=== PATIENT | female | born 1935 | race African-American/Black ===

== ENCOUNTER 2017-12-07 08:31 | Inpatient (IN) ==
[2017-12-07] MEDS ORDERED: methylPREDNISolone SOD SUC 125 MG/2 ML VIAL IV STA (09:23)
[2017-12-07] MEDS ORDERED: LEVOFLOXACIN INJ 750 MG in PREMIX 1 EACH IV STA (09:23)
[2017-12-07] MEDS ORDERED: ALBUTEROL/IPRATROPIUM 3 ML NEB RESP TX STA (09:23)
[2017-12-07] MEDS ORDERED: LEVOFLOXACIN INJ 0 ML IV ONE (10:19)
[2017-12-07] MEDS ORDERED: methylPREDNISolone SOD SUC 125 MG/2 ML VIAL ONE (10:20)
[2017-12-07 10:39] LABS: Basophils % 0.2 % (0.0-0.8); Eosinophils # 0.5 10*3/uL (0.0-0.87); Eosinophils % 7.8 % (0.00-10.9); Hemoglobin 11.7 GM/DL (12.0-16.0); Immature Granulocytes % 0.3 %; Immature Granulocytes Absolute 0.02 #; Lymphocytes # 1.3 10*3/uL (1.4-4.0); Lymphocytes % 23.1 % (21.3-54.2); Mean Corpuscular HGB Conc 32.5 GM/DL (32-36); Mean Corpuscular Hemoglobin 31 PG (27-34); Mean Corpuscular Volume 93.8 FL (87-102); Mean Platelet Volume 9.4 FL (9.6-12.0); Monocytes # 0.7 10*3/uL (0.11-0.8); Monocytes % 11.4 % (1.7-12.7); Neutrophils # 3.3 10*3/uL (1.4-7.4); Neutrophils % 57.2 % (38.7-73.9); Platelet Count 203 T/CUMM (130-400); Red Blood Count 3.84 MC/CUMM (3.8-5.5); Red Cell Distribution Width 12.9 % (9.3-17.3); White Blood Count 5.8 T/CUMM (4-12)
[2017-12-07 11:00] LABS: Alanine Aminotransferase 21 U/L (13-56); Albumin 3.7 G/DL (3.4-5.0); Alkaline Phosphatase 81 U/L (45-117); Aspartate Amino Transferase 16 U/L (0-37); Bilirubin,Total < 0.39 MG/DL (0.2-1.0); Blood Urea Nitrogen 12 MG/DL (7-18); Calcium 8.8 MG/DL (8.5-10.1); Glucose 117 MG/DL (74-106); Osmolality,Calculated 286.8 MOS/KG (273-304); Potassium 3.7 MMOL/L (3.5-5.1); Sodium 144 MMOL/L (136-145); Total Protein 6.3 G/DL (6.4-8.3); Troponin I Only 0.029 NG/ML (0.00-0.045)
[2017-12-07] MEDS ORDERED: ACETAMINOPHEN 325 MG TABLET PO ONE (11:32)
[2017-12-07] MEDS ORDERED: ACETAMINOPHEN 325 MG TABLET ONE (11:33)
[2017-12-07] MEDS ORDERED: ONDANSETRON 4 MG/2 ML VIAL IV PRN (11:37)
[2017-12-07] MEDS ORDERED: methylPREDNISolone SOD SUC 125 MG/2 ML VIAL IV SCH (12:00)
[2017-12-07] MEDS: ALBUTEROL/IPRATROPIUM 3 ML NEB RESP TX SCH ×2 (12:00→20:40)
[2017-12-07] MEDS: HYOSCYAMINE 0.125 MG TABLET SL SCH (15:34)
[2017-12-07] MEDS: METOCLOPRAMIDE 5 MG TABLET PO SCH ×2 (15:35→21:59)
[2017-12-07] MEDS: POLYVINYL ALCOHOL 1.4% OPH SOLN 15 ML BOTTLE BOTH EYES SCH ×2 (15:35→22:00)
[2017-12-07] MEDS: CARBOXYMETHYLCELLULOSE 1% OPH SOLN BOTH EYES SCH ×2 (15:36→21:59)
[2017-12-07] MEDS: SODIUM CHLORIDE 0.65% NASAL SPRAY 45 ML BOTTLE BOTH NARES SCH ×3 (15:37→22:00)
[2017-12-07] MEDS: MONTELUKAST 10 MG TABLET PO SCH (16:39)
[2017-12-07] MEDS: CARVEDILOL 12.5 MG TABLET PO SCH (16:39)
[2017-12-07] MEDS: THEOPHYLLINE ER 300 MG TABLET PO SCH (16:39)
[2017-12-07] MEDS ORDERED: ALBUTEROL/IPRATROPIUM 3 ML NEB RESP TX PRN (17:57)
[2017-12-07] MEDS: methylPREDNISolone SOD SUC 40 MG/1 ML VIAL IV SCH (18:37)
[2017-12-07] MEDS: BUDESONIDE 0.25 MG/2 ML NEB RESP TX SCH (20:40)
[2017-12-07] MEDS ORDERED: ACLIDINIUM INH SCH (21:00)
[2017-12-07] MEDS: DOCUSATE SODIUM 100 MG CAPSULE PO SCH (21:59)
[2017-12-07] MEDS: FLUTICASONE/SALMETEROL 250-50 DISKUS 14 DOSE INH SCH (21:59)
[2017-12-07] MEDS: ENOXAPARIN 40 MG/0.4 ML SYRINGE SUBCUT SCH (21:59)
[2017-12-07] MEDS: CITALOPRAM 20 MG TABLET PO SCH (21:59)
[2017-12-07] MEDS: ACETAMINOPHEN 325 MG TABLET PO PRN (22:14)
[2017-12-07] MEDS: SODIUM CHLORIDE 0.45% 1,000 ML IV SCH (23:55)
[2017-12-08] MEDS: ALBUTEROL/IPRATROPIUM 3 ML NEB RESP TX SCH ×4 (01:10→19:27)
[2017-12-08 03:58] LABS: Hematocrit 32.6 VOL% (35.7-47.0); Hemoglobin 10.9 GM/DL (12.0-16.0); Immature Granulocytes % 0.2 %; Immature Granulocytes Absolute 0.01 #; Lymphocytes # 0.8 10*3/uL (1.4-4.0); Lymphocytes % 17.2 % (21.3-54.2); Mean Corpuscular HGB Conc 33.4 GM/DL (32-36); Mean Corpuscular Hemoglobin 31 PG (27-34); Mean Corpuscular Volume 92.6 FL (87-102); Mean Platelet Volume 10.4 FL (9.6-12.0); Monocytes # 0.3 10*3/uL (0.11-0.8); Monocytes % 7.5 % (1.7-12.7); Neutrophils # 3.4 10*3/uL (1.4-7.4); Neutrophils % 75.1 % (38.7-73.9); Platelet Count 178 T/CUMM (130-400); Red Blood Count 3.52 MC/CUMM (3.8-5.5); Red Cell Distribution Width 12.4 % (9.3-17.3); White Blood Count 4.5 T/CUMM (4-12)
[2017-12-08] MEDS: methylPREDNISolone SOD SUC 40 MG/1 ML VIAL IV SCH ×3 (04:27→17:41)
[2017-12-08 04:31] LABS: Calcium 8.4 MG/DL (8.5-10.1); Potassium 3.7 MMOL/L (3.5-5.1)
[2017-12-08] MEDS: BUDESONIDE 0.25 MG/2 ML NEB RESP TX SCH ×2 (06:48→19:27)
[2017-12-08] MEDS: CARVEDILOL 12.5 MG TABLET PO SCH ×2 (08:38→16:09)
[2017-12-08] MEDS: FUROSEMIDE 40 MG TABLET PO SCH (08:39)
[2017-12-08] MEDS: HYOSCYAMINE 0.125 MG TABLET SL SCH ×2 (08:39→16:09)
[2017-12-08] MEDS: TOLTERODINE LA 4 MG CAPSULE PO SCH (08:39)
[2017-12-08] MEDS: PANTOPRAZOLE 40 MG TABLET PO SCH (08:39)
[2017-12-08] MEDS: THEOPHYLLINE ER 300 MG TABLET PO SCH ×2 (08:39→16:09)
[2017-12-08] MEDS: METOCLOPRAMIDE 5 MG TABLET PO SCH ×4 (08:39→20:32)
[2017-12-08] MEDS: ATORVASTATIN 40 MG TABLET PO SCH (08:40)
[2017-12-08] MEDS: CETIRIZINE 10 MG TABLET PO SCH (08:40)
[2017-12-08] MEDS: MULTIVITAMIN (CENTRUM) TABLET PO SCH (08:40)
[2017-12-08] MEDS: ASPIRIN 325 MG TABLET PO SCH (08:40)
[2017-12-08] MEDS: DOCUSATE SODIUM 100 MG CAPSULE PO SCH ×2 (08:40→20:32)
[2017-12-08] MEDS: SODIUM CHLORIDE 0.65% NASAL SPRAY 45 ML BOTTLE BOTH NARES SCH ×4 (08:41→20:37)
[2017-12-08] MEDS: FLUTICASONE/SALMETEROL 250-50 DISKUS 14 DOSE INH SCH ×2 (08:41→20:37)
[2017-12-08] MEDS: POLYVINYL ALCOHOL 1.4% OPH SOLN 15 ML BOTTLE BOTH EYES SCH ×3 (08:41→20:37)
[2017-12-08] MEDS: CARBOXYMETHYLCELLULOSE 1% OPH SOLN BOTH EYES SCH ×3 (08:41→20:40)
[2017-12-08] MEDS ORDERED: NON-FORMULARY MEDICATION (Dexlansoprazole [Dexilant] 60 MG) PO SCH (09:00)
[2017-12-08] MEDS: SODIUM CHLORIDE 0.45% 1,000 ML IV SCH (12:41)
[2017-12-08] MEDS: MONTELUKAST 10 MG TABLET PO SCH (16:09)
[2017-12-08] MEDS ORDERED: MAGNESIUM SULF RIDER 2 GM in PREMIX 1 EACH IV ONE (19:30)
[2017-12-08] MEDS: CITALOPRAM 20 MG TABLET PO SCH (20:32)
[2017-12-08] MEDS: ENOXAPARIN 40 MG/0.4 ML SYRINGE SUBCUT SCH (20:33)
[2017-12-09] MEDS: ALBUTEROL/IPRATROPIUM 3 ML NEB RESP TX SCH ×4 (00:50→19:04)
[2017-12-09] MEDS: methylPREDNISolone SOD SUC 40 MG/1 ML VIAL IV SCH ×3 (02:30→17:49)
[2017-12-09] MEDS: SODIUM CHLORIDE 0.45% 1,000 ML IV SCH ×2 (02:30→16:14)
[2017-12-09 05:32] LABS: Basophils % 0.1 % (0.0-0.8); Hematocrit 35.3 VOL% (35.7-47.0); Hemoglobin 11.1 GM/DL (12.0-16.0); Immature Granulocytes % 0.4 %; Immature Granulocytes Absolute 0.04 #; Lymphocytes # 0.8 10*3/uL (1.4-4.0); Lymphocytes % 7.6 % (21.3-54.2); Mean Corpuscular HGB Conc 31.4 GM/DL (32-36); Mean Corpuscular Hemoglobin 29 PG (27-34); Mean Corpuscular Volume 93.6 FL (87-102); Monocytes # 0.5 10*3/uL (0.11-0.8); Monocytes % 4.8 % (1.7-12.7); Neutrophils # 9.3 10*3/uL (1.4-7.4); Neutrophils % 87.1 % (38.7-73.9); Platelet Count 202 T/CUMM (130-400); Red Blood Count 3.77 MC/CUMM (3.8-5.5); Red Cell Distribution Width 12.5 % (9.3-17.3); White Blood Count 10.7 T/CUMM (4-12)
[2017-12-09 05:56] LABS: Calcium 8.9 MG/DL (8.5-10.1); Osmolality,Calculated 287.1 MOS/KG (273-304); Potassium 3.8 MMOL/L (3.5-5.1)
[2017-12-09] MEDS: BUDESONIDE 0.25 MG/2 ML NEB RESP TX SCH ×2 (06:56→19:04)
[2017-12-09] MEDS: HYOSCYAMINE 0.125 MG TABLET SL SCH ×2 (08:31→16:49)
[2017-12-09] MEDS: CARVEDILOL 12.5 MG TABLET PO SCH ×2 (08:31→16:49)
[2017-12-09] MEDS: CARBOXYMETHYLCELLULOSE 1% OPH SOLN BOTH EYES SCH ×3 (08:31→20:24)
[2017-12-09] MEDS: MULTIVITAMIN (CENTRUM) TABLET PO SCH (08:31)
[2017-12-09] MEDS: THEOPHYLLINE ER 300 MG TABLET PO SCH ×2 (08:31→16:50)
[2017-12-09] MEDS: CETIRIZINE 10 MG TABLET PO SCH (08:31)
[2017-12-09] MEDS: METOCLOPRAMIDE 5 MG TABLET PO SCH ×4 (08:32→20:21)
[2017-12-09] MEDS: POLYVINYL ALCOHOL 1.4% OPH SOLN 15 ML BOTTLE BOTH EYES SCH ×3 (08:32→20:23)
[2017-12-09] MEDS: ASPIRIN 325 MG TABLET PO SCH (08:32)
[2017-12-09] MEDS: ATORVASTATIN 40 MG TABLET PO SCH (08:32)
[2017-12-09] MEDS: LEVOFLOXACIN INJ 750 MG in PREMIX 1 EACH IV SCH (08:32)
[2017-12-09] MEDS: FUROSEMIDE 40 MG TABLET PO SCH (08:32)
[2017-12-09] MEDS: DOCUSATE SODIUM 100 MG CAPSULE PO SCH ×2 (08:32→20:21)
[2017-12-09] MEDS: TOLTERODINE LA 4 MG CAPSULE PO SCH (08:32)
[2017-12-09] MEDS: SODIUM CHLORIDE 0.65% NASAL SPRAY 45 ML BOTTLE BOTH NARES SCH ×4 (08:32→20:23)
[2017-12-09] MEDS: PANTOPRAZOLE 40 MG TABLET PO SCH (08:32)
[2017-12-09] MEDS: FLUTICASONE/SALMETEROL 250-50 DISKUS 14 DOSE INH SCH ×2 (08:33→20:22)
[2017-12-09] MEDS: MONTELUKAST 10 MG TABLET PO SCH (16:50)
[2017-12-09] MEDS: ENOXAPARIN 40 MG/0.4 ML SYRINGE SUBCUT SCH (20:20)
[2017-12-09] MEDS: CITALOPRAM 20 MG TABLET PO SCH (20:21)
[2017-12-10] MEDS: ALBUTEROL/IPRATROPIUM 3 ML NEB RESP TX SCH ×4 (00:12→18:57)
[2017-12-10] MEDS: methylPREDNISolone SOD SUC 40 MG/1 ML VIAL IV SCH ×3 (02:13→16:06)
[2017-12-10 05:26] LABS: Hematocrit 33.1 VOL% (35.7-47.0); Hemoglobin 10.9 GM/DL (12.0-16.0); Immature Granulocytes % 0.5 %; Immature Granulocytes Absolute 0.04 #; Lymphocytes # 0.8 10*3/uL (1.4-4.0); Lymphocytes % 10.4 % (21.3-54.2); Mean Corpuscular HGB Conc 32.9 GM/DL (32-36); Mean Corpuscular Hemoglobin 31 PG (27-34); Mean Corpuscular Volume 92.7 FL (87-102); Mean Platelet Volume 10.2 FL (9.6-12.0); Monocytes # 0.4 10*3/uL (0.11-0.8); Monocytes % 5.3 % (1.7-12.7); Neutrophils # 6.5 10*3/uL (1.4-7.4); Neutrophils % 83.8 % (38.7-73.9); Platelet Count 188 T/CUMM (130-400); Red Blood Count 3.57 MC/CUMM (3.8-5.5); Red Cell Distribution Width 12.6 % (9.3-17.3); White Blood Count 7.7 T/CUMM (4-12)
[2017-12-10] MEDS: SODIUM CHLORIDE 0.45% 1,000 ML IV SCH ×2 (05:39→19:00)
[2017-12-10 05:56] LABS: Calcium 8.4 MG/DL (8.5-10.1); Potassium 3.9 MMOL/L (3.5-5.1)
[2017-12-10] MEDS: BUDESONIDE 0.25 MG/2 ML NEB RESP TX SCH ×2 (06:52→18:57)
[2017-12-10] MEDS: CARVEDILOL 12.5 MG TABLET PO SCH ×2 (09:21→16:05)
[2017-12-10] MEDS: TOLTERODINE LA 4 MG CAPSULE PO SCH (09:21)
[2017-12-10] MEDS: ASPIRIN 325 MG TABLET PO SCH (09:21)
[2017-12-10] MEDS: METOCLOPRAMIDE 5 MG TABLET PO SCH ×4 (09:21→22:23)
[2017-12-10] MEDS: MULTIVITAMIN (CENTRUM) TABLET PO SCH (09:21)
[2017-12-10] MEDS: HYOSCYAMINE 0.125 MG TABLET SL SCH ×2 (09:21→16:05)
[2017-12-10] MEDS: THEOPHYLLINE ER 300 MG TABLET PO SCH ×2 (09:21→16:05)
[2017-12-10] MEDS: DOCUSATE SODIUM 100 MG CAPSULE PO SCH ×2 (09:21→22:24)
[2017-12-10] MEDS: FUROSEMIDE 40 MG TABLET PO SCH (09:22)
[2017-12-10] MEDS: ATORVASTATIN 40 MG TABLET PO SCH (09:22)
[2017-12-10] MEDS: PANTOPRAZOLE 40 MG TABLET PO SCH (09:22)
[2017-12-10] MEDS: CETIRIZINE 10 MG TABLET PO SCH (09:22)
[2017-12-10] MEDS: FLUTICASONE/SALMETEROL 250-50 DISKUS 14 DOSE INH SCH ×2 (09:26→22:26)
[2017-12-10] MEDS: CARBOXYMETHYLCELLULOSE 1% OPH SOLN BOTH EYES SCH ×3 (09:26→22:24)
[2017-12-10] MEDS: POLYVINYL ALCOHOL 1.4% OPH SOLN 15 ML BOTTLE BOTH EYES SCH ×3 (09:26→22:27)
[2017-12-10] MEDS: SODIUM CHLORIDE 0.65% NASAL SPRAY 45 ML BOTTLE BOTH NARES SCH ×4 (09:27→22:27)
[2017-12-10] MEDS: MONTELUKAST 10 MG TABLET PO SCH (16:05)
[2017-12-10 20:43] LABS: Apearance,Urine CLEAR (Clear); Bilirubin,Urine Negative (Negative); Blood, Urine Negative (Negative); Glucose,Urine (UA) Negative (Negative); Ketones,Urine Negative (Negative); Mucus,Urine Occasional /LPF (Occasional); Nitrite,Urine Negative (Negative); Protein,Urine Negative; Squamous Epithelial Cell,Urine Occasional /HPF (0-10); Urine Color Straw (Yellow); Urine Specific Gravity 1.008 (1.001-1.035); Urine Urobilinogen < 2.0 EU/DL (0.2-1.0); WBC,Urine <1 /HPF (0-6)
[2017-12-10] MEDS: CITALOPRAM 20 MG TABLET PO SCH (22:23)
[2017-12-10] MEDS: ENOXAPARIN 40 MG/0.4 ML SYRINGE SUBCUT SCH (22:25)
[2017-12-11] MEDS: ALBUTEROL/IPRATROPIUM 3 ML NEB RESP TX SCH ×4 (00:12→19:15)
[2017-12-11] MEDS: methylPREDNISolone SOD SUC 40 MG/1 ML VIAL IV SCH ×3 (01:39→16:04)
[2017-12-11] MEDS: BUDESONIDE 0.25 MG/2 ML NEB RESP TX SCH ×2 (06:57→19:16)
[2017-12-11 07:09] LABS: Basophils % 0.1 % (0.0-0.8); Hematocrit 35.5 VOL% (35.7-47.0); Hemoglobin 11.5 GM/DL (12.0-16.0); Immature Granulocytes % 0.7 %; Immature Granulocytes Absolute 0.05 #; Lymphocytes # 0.7 10*3/uL (1.4-4.0); Lymphocytes % 8.5 % (21.3-54.2); Mean Corpuscular HGB Conc 32.4 GM/DL (32-36); Mean Corpuscular Hemoglobin 31 PG (27-34); Mean Corpuscular Volume 94.2 FL (87-102); Mean Platelet Volume 10.8 FL (9.6-12.0); Monocytes # 0.4 10*3/uL (0.11-0.8); Monocytes % 4.7 % (1.7-12.7); Neutrophils # 6.6 10*3/uL (1.4-7.4); Platelet Count 160 T/CUMM (130-400); Red Blood Count 3.77 MC/CUMM (3.8-5.5); Red Cell Distribution Width 12.6 % (9.3-17.3); White Blood Count 7.7 T/CUMM (4-12)
[2017-12-11] MEDS ORDERED: MIDAZOLAM 2 MG/2 ML VIAL ONE (07:27)
[2017-12-11] MEDS ORDERED: MEPERIDINE 50 MG/1 ML VIAL IM ONE (07:30)
[2017-12-11] MEDS ORDERED: PROMETHAZINE 25 MG/1 ML VIAL IM ONE (07:30)
[2017-12-11] MEDS ORDERED: GLYCOPYRROLATE 0.4 MG/2 ML VIAL IM ONE (07:30)
[2017-12-11 07:33] LABS: Risk Ratio 1.61; VLDL CHOLESTEROL 12.8 MG/DL
[2017-12-11] MEDS: HYOSCYAMINE 0.125 MG TABLET SL SCH ×2 (07:35→16:02)
[2017-12-11] MEDS: METOCLOPRAMIDE 5 MG TABLET PO SCH ×4 (07:35→22:00)
[2017-12-11] MEDS ORDERED: LIDOCAINE 1% 20 ML VIAL MISC INJ ONE (08:00)
[2017-12-11] MEDS ORDERED: LIDOCAINE 2% 20 ML VIAL RESP TX ONE (08:00)
[2017-12-11] MEDS ORDERED: LIDOCAINE 2% VISCOUS 100 ML BOTTLE SWISH/SPIT ONE (08:00)
[2017-12-11] MEDS ORDERED: MIDAZOLAM 2 MG/2 ML VIAL IV ONE (08:00)
[2017-12-11] MEDS: LEVOFLOXACIN INJ 750 MG in PREMIX 1 EACH IV SCH (10:56)
[2017-12-11] MEDS: POLYVINYL ALCOHOL 1.4% OPH SOLN 15 ML BOTTLE BOTH EYES SCH ×3 (11:00→21:59)
[2017-12-11] MEDS: CARBOXYMETHYLCELLULOSE 1% OPH SOLN BOTH EYES SCH ×3 (11:00→22:03)
[2017-12-11] MEDS: FLUTICASONE/SALMETEROL 250-50 DISKUS 14 DOSE INH SCH ×2 (11:03→22:03)
[2017-12-11] MEDS: CARVEDILOL 12.5 MG TABLET PO SCH ×2 (11:06→16:02)
[2017-12-11] MEDS: ASPIRIN 325 MG TABLET PO SCH (11:08)
[2017-12-11] MEDS: MULTIVITAMIN (CENTRUM) TABLET PO SCH (11:09)
[2017-12-11] MEDS: THEOPHYLLINE ER 300 MG TABLET PO SCH ×2 (11:09→16:02)
[2017-12-11] MEDS: ATORVASTATIN 40 MG TABLET PO SCH (11:11)
[2017-12-11] MEDS: CETIRIZINE 10 MG TABLET PO SCH (11:12)
[2017-12-11] MEDS: FUROSEMIDE 40 MG TABLET PO SCH (11:12)
[2017-12-11] MEDS: SODIUM CHLORIDE 0.65% NASAL SPRAY 45 ML BOTTLE BOTH NARES SCH ×4 (11:12→22:03)
[2017-12-11] MEDS: TOLTERODINE LA 4 MG CAPSULE PO SCH (11:12)
[2017-12-11] MEDS: PANTOPRAZOLE 40 MG TABLET PO SCH (11:12)
[2017-12-11] MEDS: DOCUSATE SODIUM 100 MG CAPSULE PO SCH ×2 (11:12→22:00)
[2017-12-11] MEDS: SODIUM CHLORIDE 0.45% 1,000 ML IV SCH (13:44)
[2017-12-11] MEDS: MONTELUKAST 10 MG TABLET PO SCH (16:03)
[2017-12-11] MEDS: CITALOPRAM 20 MG TABLET PO SCH (22:00)
[2017-12-11] MEDS: ENOXAPARIN 40 MG/0.4 ML SYRINGE SUBCUT SCH (22:04)
[2017-12-12] MEDS: ALBUTEROL/IPRATROPIUM 3 ML NEB RESP TX SCH ×6 (00:30→23:59)
[2017-12-12] MEDS: methylPREDNISolone SOD SUC 40 MG/1 ML VIAL IV SCH ×3 (01:03→16:43)
[2017-12-12] MEDS: SODIUM CHLORIDE 0.45% 1,000 ML IV SCH ×2 (02:46→17:21)
[2017-12-12 06:23] LABS: Hematocrit 34.6 VOL% (35.7-47.0); Hemoglobin 11.3 GM/DL (12.0-16.0); Immature Granulocytes Absolute 0.08 #; Lymphocytes # 0.7 10*3/uL (1.4-4.0); Mean Corpuscular HGB Conc 32.7 GM/DL (32-36); Mean Corpuscular Hemoglobin 30 PG (27-34); Mean Corpuscular Volume 92.3 FL (87-102); Mean Platelet Volume 10.2 FL (9.6-12.0); Monocytes # 0.4 10*3/uL (0.11-0.8); Monocytes % 4.7 % (1.7-12.7); Neutrophils # 6.6 10*3/uL (1.4-7.4); Neutrophils % 85.3 % (38.7-73.9); Platelet Count 192 T/CUMM (130-400); Red Blood Count 3.75 MC/CUMM (3.8-5.5); Red Cell Distribution Width 12.6 % (9.3-17.3); White Blood Count 7.8 T/CUMM (4-12)
[2017-12-12 06:37] LABS: Calcium 8.3 MG/DL (8.5-10.1); Potassium 3.9 MMOL/L (3.5-5.1)
[2017-12-12] MEDS: BUDESONIDE 0.25 MG/2 ML NEB RESP TX SCH ×2 (07:05→19:06)
[2017-12-12] MEDS: HYOSCYAMINE 0.125 MG TABLET SL SCH ×2 (08:40→16:43)
[2017-12-12] MEDS: ASPIRIN 325 MG TABLET PO SCH (08:40)
[2017-12-12] MEDS: ATORVASTATIN 40 MG TABLET PO SCH (08:40)
[2017-12-12] MEDS: DOCUSATE SODIUM 100 MG CAPSULE PO SCH ×2 (08:40→20:46)
[2017-12-12] MEDS: CARVEDILOL 12.5 MG TABLET PO SCH ×2 (08:40→16:43)
[2017-12-12] MEDS: PANTOPRAZOLE 40 MG TABLET PO SCH (08:40)
[2017-12-12] MEDS: CETIRIZINE 10 MG TABLET PO SCH (08:41)
[2017-12-12] MEDS: MULTIVITAMIN (CENTRUM) TABLET PO SCH (08:41)
[2017-12-12] MEDS: TOLTERODINE LA 4 MG CAPSULE PO SCH (08:41)
[2017-12-12] MEDS: THEOPHYLLINE ER 300 MG TABLET PO SCH ×2 (08:41→16:43)
[2017-12-12] MEDS: METOCLOPRAMIDE 5 MG TABLET PO SCH ×4 (08:41→20:45)
[2017-12-12] MEDS: FUROSEMIDE 40 MG TABLET PO SCH (08:41)
[2017-12-12] MEDS: FLUTICASONE/SALMETEROL 250-50 DISKUS 14 DOSE INH SCH ×2 (08:42→20:45)
[2017-12-12] MEDS: CARBOXYMETHYLCELLULOSE 1% OPH SOLN BOTH EYES SCH ×3 (08:43→20:47)
[2017-12-12] MEDS: POLYVINYL ALCOHOL 1.4% OPH SOLN 15 ML BOTTLE BOTH EYES SCH ×3 (08:44→20:47)
[2017-12-12] MEDS: SODIUM CHLORIDE 0.65% NASAL SPRAY 45 ML BOTTLE BOTH NARES SCH ×4 (08:44→20:47)
[2017-12-12] MEDS: DORNASE ALFA 2.5 MG/2.5 ML VIAL RESP TX SCH ×2 (10:51→19:06)
[2017-12-12] MEDS ORDERED: POTASSIUM IODIDE ORAL SOLN 1,000 MG/ML BOTTLE PO SCH (15:00)
[2017-12-12] MEDS: MONTELUKAST 10 MG TABLET PO SCH (16:43)
[2017-12-12] MEDS: CITALOPRAM 20 MG TABLET PO SCH (20:46)
[2017-12-12] MEDS: ENOXAPARIN 40 MG/0.4 ML SYRINGE SUBCUT SCH (20:46)
[2017-12-13] MEDS: methylPREDNISolone SOD SUC 40 MG/1 ML VIAL IV SCH ×3 (01:35→17:25)
[2017-12-13] MEDS: ALBUTEROL/IPRATROPIUM 3 ML NEB RESP TX SCH ×5 (03:20→19:10)
[2017-12-13] MEDS: SODIUM CHLORIDE 0.45% 1,000 ML IV SCH ×2 (05:48→20:05)
[2017-12-13 06:02] LABS: Basophils % 0.1 % (0.0-0.8); Immature Granulocytes % 1.2 %; Lymphocytes # 0.7 10*3/uL (1.4-4.0); Lymphocytes % 7.7 % (21.3-54.2); Red Cell Distribution Width 12.7 % (9.3-17.3)
[2017-12-13 06:24] LABS: Hematocrit 33.7 VOL% (35.7-47.0); Hemoglobin 11.3 GM/DL (12.0-16.0); Mean Corpuscular HGB Conc 33.5 GM/DL (32-36); Mean Corpuscular Hemoglobin 31 PG (27-34); Mean Corpuscular Volume 91.6 FL (87-102); Mean Platelet Volume 9.8 FL (9.6-12.0); Monocytes # 0.5 10*3/uL (0.11-0.8); Monocytes % 5.6 % (1.7-12.7); Neutrophils # 7.3 10*3/uL (1.4-7.4); Neutrophils % 85.4 % (38.7-73.9); Platelet Count 215 T/CUMM (130-400); Red Blood Count 3.68 MC/CUMM (3.8-5.5); White Blood Count 8.6 T/CUMM (4-12)
[2017-12-13 06:25] LABS: Potassium 3.8 MMOL/L (3.5-5.1)
[2017-12-13] MEDS: DORNASE ALFA 2.5 MG/2.5 ML VIAL RESP TX SCH ×2 (07:20→19:10)
[2017-12-13] MEDS: BUDESONIDE 0.25 MG/2 ML NEB RESP TX SCH ×2 (07:20→19:10)
[2017-12-13] MEDS: SODIUM CHLORIDE 0.65% NASAL SPRAY 45 ML BOTTLE BOTH NARES SCH ×4 (09:31→21:49)
[2017-12-13] MEDS: POLYVINYL ALCOHOL 1.4% OPH SOLN 15 ML BOTTLE BOTH EYES SCH ×3 (09:32→21:21)
[2017-12-13] MEDS: THEOPHYLLINE ER 300 MG TABLET PO SCH ×2 (09:32→17:25)
[2017-12-13] MEDS: CARBOXYMETHYLCELLULOSE 1% OPH SOLN BOTH EYES SCH ×3 (09:32→21:21)
[2017-12-13] MEDS: TOLTERODINE LA 4 MG CAPSULE PO SCH (09:32)
[2017-12-13] MEDS: MULTIVITAMIN (CENTRUM) TABLET PO SCH (09:32)
[2017-12-13] MEDS: HYOSCYAMINE 0.125 MG TABLET SL SCH ×2 (09:32→15:52)
[2017-12-13] MEDS: CETIRIZINE 10 MG TABLET PO SCH (09:33)
[2017-12-13] MEDS: PANTOPRAZOLE 40 MG TABLET PO SCH (09:33)
[2017-12-13] MEDS: ASPIRIN 325 MG TABLET PO SCH (09:33)
[2017-12-13] MEDS: CARVEDILOL 12.5 MG TABLET PO SCH ×2 (09:33→17:25)
[2017-12-13] MEDS: DOCUSATE SODIUM 100 MG CAPSULE PO SCH ×2 (09:33→21:21)
[2017-12-13] MEDS: FUROSEMIDE 40 MG TABLET PO SCH (09:33)
[2017-12-13] MEDS: LEVOFLOXACIN INJ 750 MG in PREMIX 1 EACH IV SCH (09:33)
[2017-12-13] MEDS: ATORVASTATIN 40 MG TABLET PO SCH (09:33)
[2017-12-13] MEDS: METOCLOPRAMIDE 5 MG TABLET PO SCH ×4 (09:33→21:21)
[2017-12-13] MEDS: FLUTICASONE/SALMETEROL 250-50 DISKUS 14 DOSE INH SCH ×2 (09:35→21:21)
[2017-12-13] MEDS: MONTELUKAST 10 MG TABLET PO SCH (17:25)
[2017-12-13] MEDS: CITALOPRAM 20 MG TABLET PO SCH (21:20)
[2017-12-13] MEDS: ENOXAPARIN 40 MG/0.4 ML SYRINGE SUBCUT SCH (21:20)
[2017-12-13] MEDS: ACETAMINOPHEN 325 MG TABLET PO PRN (21:20)
[2017-12-14] MEDS: methylPREDNISolone SOD SUC 40 MG/1 ML VIAL IV SCH ×3 (00:56→16:43)
[2017-12-14] MEDS: ALBUTEROL/IPRATROPIUM 3 ML NEB RESP TX SCH ×7 (03:13→22:37)
[2017-12-14 05:45] LABS: Basophils % 0.1 % (0.0-0.8); Hematocrit 33.3 VOL% (35.7-47.0); Hemoglobin 10.6 GM/DL (12.0-16.0); Immature Granulocytes Absolute 0.08 #; Lymphocytes # 0.5 10*3/uL (1.4-4.0); Lymphocytes % 6.5 % (21.3-54.2); Mean Corpuscular HGB Conc 31.8 GM/DL (32-36); Mean Corpuscular Hemoglobin 30 PG (27-34); Mean Corpuscular Volume 94.3 FL (87-102); Mean Platelet Volume 9.6 FL (9.6-12.0); Monocytes # 0.4 10*3/uL (0.11-0.8); Neutrophils # 7.3 10*3/uL (1.4-7.4); Neutrophils % 87.4 % (38.7-73.9); Platelet Count 182 T/CUMM (130-400); Red Blood Count 3.53 MC/CUMM (3.8-5.5); Red Cell Distribution Width 12.8 % (9.3-17.3); White Blood Count 8.3 T/CUMM (4-12)
[2017-12-14 06:16] LABS: Calcium 8.4 MG/DL (8.5-10.1); Free T4 (Free Thyroxine) 0.8 NG/DL (0.76-1.46); Osmolality,Calculated 292.1 MOS/KG (273-304); Potassium 3.9 MMOL/L (3.5-5.1)
[2017-12-14] MEDS: BUDESONIDE 0.25 MG/2 ML NEB RESP TX SCH ×2 (07:28→18:30)
[2017-12-14] MEDS: DORNASE ALFA 2.5 MG/2.5 ML VIAL RESP TX SCH ×2 (07:38→18:30)
[2017-12-14] MEDS: ASPIRIN 325 MG TABLET PO SCH (08:35)
[2017-12-14] MEDS: MULTIVITAMIN (CENTRUM) TABLET PO SCH (08:35)
[2017-12-14] MEDS: THEOPHYLLINE ER 300 MG TABLET PO SCH ×2 (08:35→16:54)
[2017-12-14] MEDS: CARBOXYMETHYLCELLULOSE 1% OPH SOLN BOTH EYES SCH ×3 (08:35→21:39)
[2017-12-14] MEDS: POLYVINYL ALCOHOL 1.4% OPH SOLN 15 ML BOTTLE BOTH EYES SCH ×3 (08:35→21:41)
[2017-12-14] MEDS: TOLTERODINE LA 4 MG CAPSULE PO SCH (08:35)
[2017-12-14] MEDS: CARVEDILOL 12.5 MG TABLET PO SCH ×2 (08:35→16:43)
[2017-12-14] MEDS: FLUTICASONE/SALMETEROL 250-50 DISKUS 14 DOSE INH SCH ×2 (08:35→21:42)
[2017-12-14] MEDS: PANTOPRAZOLE 40 MG TABLET PO SCH (08:36)
[2017-12-14] MEDS: FUROSEMIDE 40 MG TABLET PO SCH (08:36)
[2017-12-14] MEDS: METOCLOPRAMIDE 5 MG TABLET PO SCH ×4 (08:36→21:35)
[2017-12-14] MEDS: ATORVASTATIN 40 MG TABLET PO SCH (08:36)
[2017-12-14] MEDS: DOCUSATE SODIUM 100 MG CAPSULE PO SCH ×2 (08:36→21:36)
[2017-12-14] MEDS: HYOSCYAMINE 0.125 MG TABLET SL SCH ×2 (08:36→16:43)
[2017-12-14] MEDS: CETIRIZINE 10 MG TABLET PO SCH (08:36)
[2017-12-14] MEDS: SODIUM CHLORIDE 0.65% NASAL SPRAY 45 ML BOTTLE BOTH NARES SCH ×4 (08:40→21:40)
[2017-12-14] MEDS: SODIUM CHLORIDE 0.45% 1,000 ML IV SCH (10:10)
[2017-12-14] MEDS: ACETAMINOPHEN 325 MG TABLET PO PRN (14:44)
[2017-12-14] MEDS: MONTELUKAST 10 MG TABLET PO SCH (16:43)
[2017-12-14] MEDS: CITALOPRAM 20 MG TABLET PO SCH (21:36)
[2017-12-14] MEDS: ENOXAPARIN 40 MG/0.4 ML SYRINGE SUBCUT SCH (21:38)
[2017-12-15] MEDS: methylPREDNISolone SOD SUC 40 MG/1 ML VIAL IV SCH ×3 (01:14→17:09)
[2017-12-15] MEDS: ALBUTEROL/IPRATROPIUM 3 ML NEB RESP TX SCH ×2 (02:37→07:26)
[2017-12-15] MEDS: SODIUM CHLORIDE 0.45% 1,000 ML IV SCH ×3 (02:39→12:58)
[2017-12-15 06:00] LABS: Osmolality,Calculated 298.8 MOS/KG (273-304); Potassium 3.8 MMOL/L (3.5-5.1)
[2017-12-15] MEDS: DORNASE ALFA 2.5 MG/2.5 ML VIAL RESP TX SCH ×2 (07:26→19:07)
[2017-12-15] MEDS: BUDESONIDE 0.25 MG/2 ML NEB RESP TX SCH ×2 (07:26→19:07)
[2017-12-15] MEDS: HYOSCYAMINE 0.125 MG TABLET SL SCH ×2 (07:50→16:43)
[2017-12-15] MEDS: METOCLOPRAMIDE 5 MG TABLET PO SCH ×4 (07:50→22:03)
[2017-12-15] MEDS: THEOPHYLLINE ER 300 MG TABLET PO SCH ×2 (07:50→17:12)
[2017-12-15] MEDS: CARVEDILOL 12.5 MG TABLET PO SCH ×2 (07:50→16:44)
[2017-12-15] MEDS: POLYVINYL ALCOHOL 1.4% OPH SOLN 15 ML BOTTLE BOTH EYES SCH ×3 (09:23→22:05)
[2017-12-15] MEDS: FLUTICASONE/SALMETEROL 250-50 DISKUS 14 DOSE INH SCH ×2 (09:30→22:07)
[2017-12-15] MEDS: TOLTERODINE LA 4 MG CAPSULE PO SCH (09:34)
[2017-12-15] MEDS: SODIUM CHLORIDE 0.65% NASAL SPRAY 45 ML BOTTLE BOTH NARES SCH ×4 (09:35→22:05)
[2017-12-15] MEDS: DOCUSATE SODIUM 100 MG CAPSULE PO SCH ×2 (09:35→22:03)
[2017-12-15] MEDS: FUROSEMIDE 40 MG TABLET PO SCH (09:35)
[2017-12-15] MEDS: ATORVASTATIN 40 MG TABLET PO SCH (09:35)
[2017-12-15] MEDS: ASPIRIN 325 MG TABLET PO SCH (09:35)
[2017-12-15] MEDS: PANTOPRAZOLE 40 MG TABLET PO SCH (09:35)
[2017-12-15] MEDS: LEVOFLOXACIN INJ 750 MG in PREMIX 1 EACH IV SCH (09:35)
[2017-12-15] MEDS: CETIRIZINE 10 MG TABLET PO SCH (09:35)
[2017-12-15] MEDS: MULTIVITAMIN (CENTRUM) TABLET PO SCH (09:35)
[2017-12-15] MEDS: CARBOXYMETHYLCELLULOSE 1% OPH SOLN BOTH EYES SCH ×3 (09:36→22:06)
[2017-12-15] MEDS: MONTELUKAST 10 MG TABLET PO SCH (17:12)
[2017-12-15] MEDS: CITALOPRAM 20 MG TABLET PO SCH (22:03)
[2017-12-15] MEDS: ENOXAPARIN 40 MG/0.4 ML SYRINGE SUBCUT SCH (22:04)
[2017-12-16] MEDS: methylPREDNISolone SOD SUC 40 MG/1 ML VIAL IV SCH ×3 (01:18→16:57)
[2017-12-16] MEDS: SODIUM CHLORIDE 0.45% 1,000 ML IV SCH ×2 (03:20→15:42)
[2017-12-16 06:32] LABS: Calcium 8.2 MG/DL (8.5-10.1); Osmolality,Calculated 294.1 MOS/KG (273-304); Potassium 3.9 MMOL/L (3.5-5.1)
[2017-12-16] MEDS: METOCLOPRAMIDE 5 MG TABLET PO SCH ×4 (07:44→21:07)
[2017-12-16] MEDS: THEOPHYLLINE ER 300 MG TABLET PO SCH ×2 (07:44→16:57)
[2017-12-16] MEDS: CARVEDILOL 12.5 MG TABLET PO SCH ×2 (07:44→16:51)
[2017-12-16] MEDS: HYOSCYAMINE 0.125 MG TABLET SL SCH ×2 (07:44→16:51)
[2017-12-16] MEDS: BUDESONIDE 0.25 MG/2 ML NEB RESP TX SCH ×2 (08:42→19:12)
[2017-12-16] MEDS: DORNASE ALFA 2.5 MG/2.5 ML VIAL RESP TX SCH ×2 (08:47→19:12)
[2017-12-16] MEDS: FLUTICASONE/SALMETEROL 250-50 DISKUS 14 DOSE INH SCH ×2 (09:56→21:12)
[2017-12-16] MEDS: POLYVINYL ALCOHOL 1.4% OPH SOLN 15 ML BOTTLE BOTH EYES SCH ×3 (09:56→21:10)
[2017-12-16] MEDS: SODIUM CHLORIDE 0.65% NASAL SPRAY 45 ML BOTTLE BOTH NARES SCH ×4 (09:56→21:09)
[2017-12-16] MEDS: CARBOXYMETHYLCELLULOSE 1% OPH SOLN BOTH EYES SCH ×3 (09:56→21:11)
[2017-12-16] MEDS: ATORVASTATIN 40 MG TABLET PO SCH (09:57)
[2017-12-16] MEDS: ASPIRIN 325 MG TABLET PO SCH (09:57)
[2017-12-16] MEDS: TOLTERODINE LA 4 MG CAPSULE PO SCH (09:57)
[2017-12-16] MEDS: DOCUSATE SODIUM 100 MG CAPSULE PO SCH ×2 (09:57→21:07)
[2017-12-16] MEDS: CETIRIZINE 10 MG TABLET PO SCH (09:58)
[2017-12-16] MEDS: MULTIVITAMIN (CENTRUM) TABLET PO SCH (09:58)
[2017-12-16] MEDS: FUROSEMIDE 40 MG TABLET PO SCH (09:58)
[2017-12-16] MEDS: PANTOPRAZOLE 40 MG TABLET PO SCH (09:58)
[2017-12-16] MEDS: MONTELUKAST 10 MG TABLET PO SCH (16:57)
[2017-12-16] MEDS: CITALOPRAM 20 MG TABLET PO SCH (21:07)
[2017-12-16] MEDS: ENOXAPARIN 40 MG/0.4 ML SYRINGE SUBCUT SCH (21:08)
[2017-12-17] MEDS: methylPREDNISolone SOD SUC 40 MG/1 ML VIAL IV SCH ×2 (01:37→08:55)
[2017-12-17] MEDS: SODIUM CHLORIDE 0.45% 1,000 ML IV SCH (03:50)
[2017-12-17] MEDS: BUDESONIDE 0.25 MG/2 ML NEB RESP TX SCH (06:58)
[2017-12-17 07:03] LABS: Basophils % 0.1 % (0.0-0.8); Hematocrit 34.2 VOL% (35.7-47.0); Hemoglobin 11.6 GM/DL (12.0-16.0); Immature Granulocytes % 1.9 %; Immature Granulocytes Absolute 0.16 #; Lymphocytes # 0.6 10*3/uL (1.4-4.0); Lymphocytes % 6.9 % (21.3-54.2); Mean Corpuscular HGB Conc 33.9 GM/DL (32-36); Mean Corpuscular Hemoglobin 31 PG (27-34); Mean Corpuscular Volume 91.2 FL (87-102); Mean Platelet Volume 9.7 FL (9.6-12.0); Monocytes # 0.6 10*3/uL (0.11-0.8); Monocytes % 6.5 % (1.7-12.7); Neutrophils # 7.2 10*3/uL (1.4-7.4); Neutrophils % 84.6 % (38.7-73.9); Platelet Count 223 T/CUMM (130-400); Red Blood Count 3.75 MC/CUMM (3.8-5.5); White Blood Count 8.5 T/CUMM (4-12)
[2017-12-17] MEDS: DORNASE ALFA 2.5 MG/2.5 ML VIAL RESP TX SCH (07:05)
[2017-12-17 07:22] LABS: Calcium 8.1 MG/DL (8.5-10.1); Osmolality,Calculated 297.1 MOS/KG (273-304)
[2017-12-17 07:45] VITALS: BP 155/85
[2017-12-17] MEDS: LEVOFLOXACIN INJ 750 MG in PREMIX 1 EACH IV SCH (08:53)
[2017-12-17] MEDS: POLYVINYL ALCOHOL 1.4% OPH SOLN 15 ML BOTTLE BOTH EYES SCH (08:54)
[2017-12-17] MEDS: SODIUM CHLORIDE 0.65% NASAL SPRAY 45 ML BOTTLE BOTH NARES SCH (08:54)
[2017-12-17] MEDS: DOCUSATE SODIUM 100 MG CAPSULE PO SCH (08:55)
[2017-12-17] MEDS: ATORVASTATIN 40 MG TABLET PO SCH (08:55)
[2017-12-17] MEDS: ASPIRIN 325 MG TABLET PO SCH (08:55)
[2017-12-17] MEDS: HYOSCYAMINE 0.125 MG TABLET SL SCH (08:55)
[2017-12-17] MEDS: METOCLOPRAMIDE 5 MG TABLET PO SCH ×2 (08:55→10:55)
[2017-12-17] MEDS: MULTIVITAMIN (CENTRUM) TABLET PO SCH (08:55)
[2017-12-17] MEDS: FUROSEMIDE 40 MG TABLET PO SCH (08:56)
[2017-12-17] MEDS: PANTOPRAZOLE 40 MG TABLET PO SCH (08:56)
[2017-12-17] MEDS: CETIRIZINE 10 MG TABLET PO SCH (08:56)
[2017-12-17] MEDS: CARVEDILOL 12.5 MG TABLET PO SCH (08:56)
[2017-12-17] MEDS: FLUTICASONE/SALMETEROL 250-50 DISKUS 14 DOSE INH SCH (09:07)
[2017-12-17] MEDS: TOLTERODINE LA 4 MG CAPSULE PO SCH (09:40)
[2017-12-17] MEDS: THEOPHYLLINE ER 300 MG TABLET PO SCH (09:40)
[2017-12-17] MEDS: CARBOXYMETHYLCELLULOSE 1% OPH SOLN BOTH EYES SCH (09:40)
[2017-12-17] MEDS ORDERED: CEFUROXIME 500 MG TABLET PO SCH (21:00)
[2017-12-18] MEDS ORDERED: predniSONE 10 MG TABLET PO SCH (09:00)
== END 2017-12-17 12:28 | disposition home or self-care (01) | DRG 191 ==
LOC: EDUNIT# → EDBD → N.ED 08:31 → N.EDINP 11:37 → N.2E 13:20
PROVIDERS: ADMIT Family Medicine; ATTEND Family Medicine

== ENCOUNTER 2018-12-15 06:00 | Inpatient (IN) ==
[2018-12-15 06:25] LABS: Basophils % 0.2 % (0.0-0.8); Hematocrit 34.5 VOL% (35.7-47.0); Hemoglobin 11.3 GM/DL (12.0-16.0); Immature Granulocytes % 0.6 %; Immature Granulocytes Absolute 0.05 #; Lymphocytes # 1.7 10*3/uL (1.4-4.0); Lymphocytes % 19.3 % (21.3-54.2); Mean Corpuscular HGB Conc 32.8 GM/DL (32-36); Mean Corpuscular Volume 94.5 FL (87-102); Mean Platelet Volume 10.2 FL (9.6-12.0); Neutrophils % 70.9 % (38.7-73.9); Platelet Count 251 T/CUMM (130-400); Red Blood Count 3.65 MC/CUMM (3.8-5.5); Red Cell Distribution Width 12.9 % (9.3-17.3); White Blood Count 8.7 T/CUMM (4-12)
[2018-12-15 06:35] LABS: PT Patient Result 10.7 SECS; Partial Thromboplastin Time 23.2 SECS (0-40)
[2018-12-15] MEDS ORDERED: cefTRIAXone 1,000 MG in SODIUM CHLORIDE 0.9% 100 ML IV STA (06:48)
[2018-12-15] MEDS ORDERED: ALBUTEROL/IPRATROPIUM 3 ML NEB RESP TX STA (06:48)
[2018-12-15] MEDS ORDERED: methylPREDNISolone SOD SUC 125 MG/2 ML VIAL IV STA (06:48)
[2018-12-15 07:29] LABS: Alanine Aminotransferase 24 U/L (13-56); Albumin 3.7 G/DL (3.4-5.0); Alkaline Phosphatase 70 U/L (45-117); Aspartate Amino Transferase 17 U/L (0-37); Bilirubin,Total < 0.39 MG/DL (0.2-1.0); Blood Urea Nitrogen 15 MG/DL (7-18); Calcium 8.5 MG/DL (8.5-10.1); Glucose 120 MG/DL (74-106); Osmolality,Calculated 284.1 MOS/KG (273-304); Total Protein 6.6 G/DL (6.4-8.3)
[2018-12-15] MEDS ORDERED: cefTRIAXone 1,000 MG VIAL ONE (07:36)
[2018-12-15] MEDS ORDERED: ONDANSETRON 4 MG/2 ML VIAL IV PRN (08:28)
[2018-12-15] MEDS ORDERED: ACETAMINOPHEN 325 MG TABLET PO PRN (08:28)
[2018-12-15] MEDS ORDERED: PANTOPRAZOLE 40 MG TABLET PO SCH (09:00)
[2018-12-15] MEDS: DOCUSATE SODIUM 100 MG CAPSULE PO SCH ×2 (10:11→20:39)
[2018-12-15] MEDS ORDERED: clonazePAM 0.5 MG TABLET PO PRN (11:39)
[2018-12-15] MEDS ORDERED: NABUMETONE 750 MG TABLET PO PRN (11:39)
[2018-12-15] MEDS ORDERED: ALBUTEROL 2.5 MG/3 ML NEB RESP TX PRN (12:22)
[2018-12-15] MEDS ORDERED: ALBUTEROL/IPRATROPIUM 3 ML NEB RESP TX SCH (13:00)
[2018-12-15] MEDS: cefTRIAXone 1,000 MG in SYRINGE 1 EACH IV SCH ×2 (13:02→20:42)
[2018-12-15] MEDS: methylPREDNISolone SOD SUC 125 MG/2 ML VIAL IV SCH ×2 (13:03→17:00)
[2018-12-15] MEDS: ENOXAPARIN 40 MG/0.4 ML SYRINGE SUBCUT SCH (13:55)
[2018-12-15] MEDS: ALBUTEROL/IPRATROPIUM 3 ML NEB RESP TX SCH ×3 (14:09→23:26)
[2018-12-15] MEDS ORDERED: CARVEDILOL 6.25 MG TABLET PO SCH (15:09)
[2018-12-15] MEDS: METOCLOPRAMIDE 5 MG TABLET PO SCH ×2 (17:00→20:39)
[2018-12-15] MEDS: THEOPHYLLINE ER 300 MG TABLET PO SCH (17:01)
[2018-12-15] MEDS: CARBOXYMETHYLCELLULOSE 1% OPH SOLN BOTH EYES SCH ×2 (17:02→22:27)
[2018-12-15] MEDS: MONTELUKAST 10 MG TABLET PO SCH (17:02)
[2018-12-15] MEDS: HYOSCYAMINE 0.125 MG TABLET SL SCH (17:08)
[2018-12-15] MEDS: BUDESONIDE 0.5 MG/2 ML NEB RESP TX SCH (18:49)
[2018-12-15] MEDS: CITALOPRAM 20 MG TABLET PO SCH (20:39)
[2018-12-15] MEDS: CARVEDILOL 6.25 MG TABLET PO SCH (20:39)
[2018-12-16] MEDS: methylPREDNISolone SOD SUC 125 MG/2 ML VIAL IV SCH
[2018-12-16] MEDS: ALBUTEROL/IPRATROPIUM 3 ML NEB RESP TX SCH ×6 (03:22→23:18)
[2018-12-16 05:24] LABS: Basophils % 0.1 % (0.0-0.8); Hematocrit 34.9 VOL% (35.7-47.0); Hemoglobin 11.1 GM/DL (12.0-16.0); Immature Granulocytes % 0.6 %; Immature Granulocytes Absolute 0.05 #; Lymphocytes # 0.7 10*3/uL (1.4-4.0); Lymphocytes % 9.1 % (21.3-54.2); Mean Corpuscular HGB Conc 31.8 GM/DL (32-36); Mean Corpuscular Volume 95.6 FL (87-102); Mean Platelet Volume 9.8 FL (9.6-12.0); Monocytes % 3.4 % (1.7-12.7); Neutrophils % 86.8 % (38.7-73.9); Platelet Count 223 T/CUMM (130-400); Red Blood Count 3.65 MC/CUMM (3.8-5.5); Red Cell Distribution Width 12.8 % (9.3-17.3); White Blood Count 7.9 T/CUMM (4-12)
[2018-12-16 05:31] LABS: Calcium 8.5 MG/DL (8.5-10.1); Osmolality,Calculated 291.3 MOS/KG (273-304)
[2018-12-16] MEDS: BUDESONIDE 0.5 MG/2 ML NEB RESP TX SCH ×2 (07:07→20:06)
[2018-12-16] MEDS: CETIRIZINE 10 MG TABLET PO SCH (09:31)
[2018-12-16] MEDS: DOCUSATE SODIUM 100 MG CAPSULE PO SCH ×2 (09:32→20:48)
[2018-12-16] MEDS: ATORVASTATIN 40 MG TABLET PO SCH (09:32)
[2018-12-16] MEDS: THEOPHYLLINE ER 300 MG TABLET PO SCH ×2 (09:32→16:18)
[2018-12-16] MEDS: METOCLOPRAMIDE 5 MG TABLET PO SCH ×4 (09:32→20:49)
[2018-12-16] MEDS: HYOSCYAMINE 0.125 MG TABLET SL SCH ×2 (09:32→16:18)
[2018-12-16] MEDS: PANTOPRAZOLE 40 MG TABLET PO SCH (09:32)
[2018-12-16] MEDS: TOLTERODINE LA 4 MG CAPSULE PO SCH (09:32)
[2018-12-16] MEDS: ASPIRIN 325 MG TABLET PO SCH (09:32)
[2018-12-16] MEDS: MULTIVITAMIN (CENTRUM) TABLET PO SCH (09:33)
[2018-12-16] MEDS: CARVEDILOL 6.25 MG TABLET PO SCH ×2 (09:33→20:50)
[2018-12-16] MEDS: FUROSEMIDE 40 MG TABLET PO SCH (09:33)
[2018-12-16] MEDS: CARBOXYMETHYLCELLULOSE 1% OPH SOLN BOTH EYES SCH ×3 (09:34→20:52)
[2018-12-16] MEDS: cefTRIAXone 1,000 MG in SYRINGE 1 EACH IV SCH (09:34)
[2018-12-16] MEDS: methylPREDNISolone SOD SUC 40 MG/1 ML VIAL IV SCH ×2 (09:35→16:19)
[2018-12-16] MEDS: ENOXAPARIN 40 MG/0.4 ML SYRINGE SUBCUT SCH (09:57)
[2018-12-16 13:53] LABS: Apearance,Urine Slightly Hazy (Clear); Bacteria,Urine Occasional /HPF (Few); Bilirubin,Urine Negative (Negative); Blood, Urine Negative (Negative); Glucose,Urine (UA) Negative (Negative); Hyaline Casts,Urine 1 /LPF (0-3); Ketones,Urine Negative (Negative); Mucus,Urine Occasional /LPF (Occasional); Nitrite,Urine Negative (Negative); Protein,Urine Negative; Squamous Epithelial Cell,Urine Occasional /HPF (0-10); Urine Color Straw (Yellow); Urine Specific Gravity 1.006 (1.001-1.035); Urine Urobilinogen < 2.0 EU/DL (0.2-1.0)
[2018-12-16] MEDS: MONTELUKAST 10 MG TABLET PO SCH (16:19)
[2018-12-16] MEDS: DORNASE ALFA 2.5 MG/2.5 ML VIAL RESP TX SCH (20:06)
[2018-12-16] MEDS: CITALOPRAM 20 MG TABLET PO SCH (20:51)
[2018-12-17] MEDS: ALBUTEROL/IPRATROPIUM 3 ML NEB RESP TX SCH ×7 (03:29→22:48)
[2018-12-17 05:58] LABS: Basophils % 0.2 % (0.0-0.8); Hematocrit 34.7 VOL% (35.7-47.0); Immature Granulocytes % 0.9 %; Immature Granulocytes Absolute 0.09 #; Lymphocytes # 0.7 10*3/uL (1.4-4.0); Lymphocytes % 6.7 % (21.3-54.2); Mean Corpuscular HGB Conc 31.7 GM/DL (32-36); Mean Corpuscular Volume 95.3 FL (87-102); Mean Platelet Volume 9.3 FL (9.6-12.0); Monocytes % 5.2 % (1.7-12.7); NRBC # 0.03 10*3/uL; Platelet Count 226 T/CUMM (130-400); Red Blood Count 3.64 MC/CUMM (3.8-5.5); Red Cell Distribution Width 12.8 % (9.3-17.3); White Blood Count 9.8 T/CUMM (4-12)
[2018-12-17 06:22] LABS: Albumin 3.4 G/DL (3.4-5.0); Bilirubin,Total 0.4 MG/DL (0.2-1.0); Calcium 8.7 MG/DL (8.5-10.1); Osmolality,Calculated 292.4 MOS/KG (273-304); Risk Ratio 1.53; Total Protein 6.1 G/DL (6.4-8.3)
[2018-12-17] MEDS: BUDESONIDE 0.5 MG/2 ML NEB RESP TX SCH ×2 (07:10→19:25)
[2018-12-17] MEDS: DORNASE ALFA 2.5 MG/2.5 ML VIAL RESP TX SCH ×2 (07:21→19:25)
[2018-12-17] MEDS: cefTRIAXone 1,000 MG in SYRINGE 1 EACH IV SCH (09:26)
[2018-12-17] MEDS: methylPREDNISolone SOD SUC 40 MG/1 ML VIAL IV SCH ×3 (09:27→17:08)
[2018-12-17] MEDS: ENOXAPARIN 40 MG/0.4 ML SYRINGE SUBCUT SCH (09:27)
[2018-12-17] MEDS: THEOPHYLLINE ER 300 MG TABLET PO SCH ×2 (09:28→17:07)
[2018-12-17] MEDS: CARBOXYMETHYLCELLULOSE 1% OPH SOLN BOTH EYES SCH ×3 (09:28→23:00)
[2018-12-17] MEDS: ATORVASTATIN 40 MG TABLET PO SCH (09:28)
[2018-12-17] MEDS: DOCUSATE SODIUM 100 MG CAPSULE PO SCH ×2 (09:28→22:57)
[2018-12-17] MEDS: PANTOPRAZOLE 40 MG TABLET PO SCH (09:28)
[2018-12-17] MEDS: METOCLOPRAMIDE 5 MG TABLET PO SCH ×4 (09:29→22:57)
[2018-12-17] MEDS: TOLTERODINE LA 4 MG CAPSULE PO SCH (09:29)
[2018-12-17] MEDS: CETIRIZINE 10 MG TABLET PO SCH (09:29)
[2018-12-17] MEDS: MULTIVITAMIN (CENTRUM) TABLET PO SCH (09:29)
[2018-12-17] MEDS: HYOSCYAMINE 0.125 MG TABLET SL SCH ×2 (09:29→17:07)
[2018-12-17] MEDS: CARVEDILOL 6.25 MG TABLET PO SCH ×2 (09:29→22:58)
[2018-12-17] MEDS: FUROSEMIDE 40 MG TABLET PO SCH (09:29)
[2018-12-17] MEDS: ASPIRIN 325 MG TABLET PO SCH (09:29)
[2018-12-17] MEDS: MONTELUKAST 10 MG TABLET PO SCH (17:07)
[2018-12-17] MEDS: CITALOPRAM 20 MG TABLET PO SCH (22:58)
[2018-12-18] MEDS: methylPREDNISolone SOD SUC 40 MG/1 ML VIAL IV SCH ×3 (01:15→17:01)
[2018-12-18] MEDS: ALBUTEROL/IPRATROPIUM 3 ML NEB RESP TX SCH ×6 (03:19→23:13)
[2018-12-18 05:56] LABS: Basophils % 0.1 % (0.0-0.8); Hematocrit 33.4 VOL% (35.7-47.0); Hemoglobin 10.7 GM/DL (12.0-16.0); Immature Granulocytes % 0.7 %; Immature Granulocytes Absolute 0.06 #; Lymphocytes # 0.5 10*3/uL (1.4-4.0); Lymphocytes % 5.5 % (21.3-54.2); Mean Corpuscular Volume 95.7 FL (87-102); Mean Platelet Volume 9.7 FL (9.6-12.0); Monocytes % 6.2 % (1.7-12.7); NRBC # 0.02 10*3/uL; Neutrophils % 87.5 % (38.7-73.9); Platelet Count 233 T/CUMM (130-400); Red Blood Count 3.49 MC/CUMM (3.8-5.5); Red Cell Distribution Width 13.1 % (9.3-17.3); White Blood Count 8.7 T/CUMM (4-12)
[2018-12-18 06:13] LABS: Calcium 8.5 MG/DL (8.5-10.1); Osmolality,Calculated 291.7 MOS/KG (273-304)
[2018-12-18] MEDS ORDERED: MEPERIDINE 50 MG/1 ML VIAL IM ONE (07:00)
[2018-12-18] MEDS ORDERED: PROMETHAZINE 25 MG/1 ML VIAL IM ONE (07:00)
[2018-12-18] MEDS ORDERED: MIDAZOLAM 2 MG/2 ML VIAL ONE (07:20)
[2018-12-18] MEDS ORDERED: fentaNYL 100 MCG/2 ML VIAL ONE (07:21)
[2018-12-18] MEDS ORDERED: LIDOCAINE 2% 20 ML VIAL RESP TX ONE (07:30)
[2018-12-18] MEDS ORDERED: LIDOCAINE 1% 20 ML VIAL MISC INJ ONE (07:30)
[2018-12-18] MEDS ORDERED: LIDOCAINE 2% VISCOUS 100 ML BOTTLE SWISH/SPIT ONE (07:30)
[2018-12-18] MEDS ORDERED: MIDAZOLAM 2 MG/2 ML VIAL IV ONE (07:30)
[2018-12-18] MEDS: BUDESONIDE 0.5 MG/2 ML NEB RESP TX SCH ×2 (07:51→19:10)
[2018-12-18] MEDS: DORNASE ALFA 2.5 MG/2.5 ML VIAL RESP TX SCH ×2 (07:51→19:10)
[2018-12-18] MEDS: CARVEDILOL 6.25 MG TABLET PO SCH ×2 (10:40→21:12)
[2018-12-18] MEDS: PANTOPRAZOLE 40 MG TABLET PO SCH (10:40)
[2018-12-18] MEDS: CETIRIZINE 10 MG TABLET PO SCH (10:40)
[2018-12-18] MEDS: THEOPHYLLINE ER 300 MG TABLET PO SCH ×2 (10:40→17:00)
[2018-12-18] MEDS: HYOSCYAMINE 0.125 MG TABLET SL SCH ×2 (10:40→17:00)
[2018-12-18] MEDS: MULTIVITAMIN (CENTRUM) TABLET PO SCH (10:40)
[2018-12-18] MEDS: ASPIRIN 325 MG TABLET PO SCH (10:40)
[2018-12-18] MEDS: DOCUSATE SODIUM 100 MG CAPSULE PO SCH ×2 (10:41→21:12)
[2018-12-18] MEDS: METOCLOPRAMIDE 5 MG TABLET PO SCH ×4 (10:41→21:12)
[2018-12-18] MEDS: ATORVASTATIN 40 MG TABLET PO SCH (10:41)
[2018-12-18] MEDS: FUROSEMIDE 40 MG TABLET PO SCH (10:41)
[2018-12-18] MEDS: ENOXAPARIN 40 MG/0.4 ML SYRINGE SUBCUT SCH (10:41)
[2018-12-18] MEDS: TOLTERODINE LA 4 MG CAPSULE PO SCH (10:41)
[2018-12-18] MEDS: CARBOXYMETHYLCELLULOSE 1% OPH SOLN BOTH EYES SCH ×3 (10:42→23:59)
[2018-12-18] MEDS: cefTRIAXone 1,000 MG in SYRINGE 1 EACH IV SCH (10:42)
[2018-12-18] MEDS: INSULIN LISPRO 100 UNIT/ML SUBCUT SCH ×3 (12:32→21:13)
[2018-12-18] MEDS: MONTELUKAST 10 MG TABLET PO SCH (17:00)
[2018-12-18] MEDS: CITALOPRAM 20 MG TABLET PO SCH (21:12)
[2018-12-19] MEDS: methylPREDNISolone SOD SUC 40 MG/1 ML VIAL IV SCH ×3 (01:12→17:02)
[2018-12-19] MEDS: ALBUTEROL/IPRATROPIUM 3 ML NEB RESP TX SCH ×6 (02:58→22:20)
[2018-12-19 04:46] LABS: Basophils % 0.1 % (0.0-0.8); Hematocrit 35.7 VOL% (35.7-47.0); Hemoglobin 11.4 GM/DL (12.0-16.0); Immature Granulocytes % 0.8 %; Immature Granulocytes Absolute 0.07 #; Lymphocytes # 0.6 10*3/uL (1.4-4.0); Lymphocytes % 6.8 % (21.3-54.2); Mean Corpuscular HGB Conc 31.9 GM/DL (32-36); Mean Corpuscular Volume 95.7 FL (87-102); Mean Platelet Volume 9.8 FL (9.6-12.0); Monocytes % 8.3 % (1.7-12.7); NRBC # 0.02 10*3/uL; Platelet Count 240 T/CUMM (130-400); Red Blood Count 3.73 MC/CUMM (3.8-5.5); Red Cell Distribution Width 13.4 % (9.3-17.3)
[2018-12-19 05:00] LABS: Calcium 9.1 MG/DL (8.5-10.1); Osmolality,Calculated 293.1 MOS/KG (273-304)
[2018-12-19] MEDS: DORNASE ALFA 2.5 MG/2.5 ML VIAL RESP TX SCH ×2 (06:54→18:56)
[2018-12-19] MEDS: BUDESONIDE 0.5 MG/2 ML NEB RESP TX SCH ×2 (06:54→18:56)
[2018-12-19] MEDS: PANTOPRAZOLE 40 MG TABLET PO SCH (08:48)
[2018-12-19] MEDS: ASPIRIN 325 MG TABLET PO SCH (08:48)
[2018-12-19] MEDS: CARVEDILOL 6.25 MG TABLET PO SCH ×2 (08:48→21:21)
[2018-12-19] MEDS: METOCLOPRAMIDE 5 MG TABLET PO SCH ×4 (08:48→21:21)
[2018-12-19] MEDS: DOCUSATE SODIUM 100 MG CAPSULE PO SCH ×2 (08:48→21:21)
[2018-12-19] MEDS: TOLTERODINE LA 4 MG CAPSULE PO SCH (08:49)
[2018-12-19] MEDS: MULTIVITAMIN (CENTRUM) TABLET PO SCH (08:49)
[2018-12-19] MEDS: ATORVASTATIN 40 MG TABLET PO SCH (08:49)
[2018-12-19] MEDS: FUROSEMIDE 40 MG TABLET PO SCH (08:49)
[2018-12-19] MEDS: CETIRIZINE 10 MG TABLET PO SCH (08:49)
[2018-12-19] MEDS: THEOPHYLLINE ER 300 MG TABLET PO SCH ×2 (08:49→17:02)
[2018-12-19] MEDS: HYOSCYAMINE 0.125 MG TABLET SL SCH ×2 (08:49→17:02)
[2018-12-19] MEDS: ENOXAPARIN 40 MG/0.4 ML SYRINGE SUBCUT SCH (08:50)
[2018-12-19] MEDS: cefTRIAXone 1,000 MG in SYRINGE 1 EACH IV SCH (08:50)
[2018-12-19] MEDS: INSULIN LISPRO 100 UNIT/ML SUBCUT SCH ×4 (08:50→21:21)
[2018-12-19] MEDS: CARBOXYMETHYLCELLULOSE 1% OPH SOLN BOTH EYES SCH ×3 (11:02→21:20)
[2018-12-19] MEDS: MONTELUKAST 10 MG TABLET PO SCH (17:02)
[2018-12-19] MEDS: CITALOPRAM 20 MG TABLET PO SCH (21:21)
[2018-12-20] MEDS: methylPREDNISolone SOD SUC 40 MG/1 ML VIAL IV SCH ×3 (01:42→17:41)
[2018-12-20] MEDS: ALBUTEROL/IPRATROPIUM 3 ML NEB RESP TX SCH ×6 (02:12→23:32)
[2018-12-20 04:31] LABS: Basophils % 0.1 % (0.0-0.8); Hematocrit 35.5 VOL% (35.7-47.0); Hemoglobin 11.1 GM/DL (12.0-16.0); Immature Granulocytes % 1.1 %; Lymphocytes # 0.7 10*3/uL (1.4-4.0); Lymphocytes % 7.4 % (21.3-54.2); Mean Corpuscular HGB Conc 31.3 GM/DL (32-36); Mean Corpuscular Volume 96.2 FL (87-102); Mean Platelet Volume 9.4 FL (9.6-12.0); Monocytes % 6.9 % (1.7-12.7); NRBC # 0.03 10*3/uL; Neutrophils % 84.5 % (38.7-73.9); Platelet Count 242 T/CUMM (130-400); Red Blood Count 3.69 MC/CUMM (3.8-5.5); Red Cell Distribution Width 13.2 % (9.3-17.3); White Blood Count 9.2 T/CUMM (4-12)
[2018-12-20 05:06] LABS: Calcium 8.6 MG/DL (8.5-10.1); Osmolality,Calculated 294.4 MOS/KG (273-304)
[2018-12-20] MEDS: BUDESONIDE 0.5 MG/2 ML NEB RESP TX SCH ×2 (07:02→19:02)
[2018-12-20] MEDS: DORNASE ALFA 2.5 MG/2.5 ML VIAL RESP TX SCH ×2 (07:02→19:10)
[2018-12-20] MEDS: INSULIN LISPRO 100 UNIT/ML SUBCUT SCH ×4 (08:27→21:38)
[2018-12-20] MEDS: ASPIRIN 325 MG TABLET PO SCH (08:27)
[2018-12-20] MEDS: TOLTERODINE LA 4 MG CAPSULE PO SCH (08:27)
[2018-12-20] MEDS: METOCLOPRAMIDE 5 MG TABLET PO SCH ×4 (08:27→20:58)
[2018-12-20] MEDS: THEOPHYLLINE ER 300 MG TABLET PO SCH ×2 (08:27→17:40)
[2018-12-20] MEDS: cefTRIAXone 1,000 MG in SYRINGE 1 EACH IV SCH (08:28)
[2018-12-20] MEDS: DOCUSATE SODIUM 100 MG CAPSULE PO SCH ×2 (08:28→20:57)
[2018-12-20] MEDS: CETIRIZINE 10 MG TABLET PO SCH (08:28)
[2018-12-20] MEDS: HYOSCYAMINE 0.125 MG TABLET SL SCH ×2 (08:28→17:40)
[2018-12-20] MEDS: MULTIVITAMIN (CENTRUM) TABLET PO SCH (08:28)
[2018-12-20] MEDS: FUROSEMIDE 40 MG TABLET PO SCH (08:28)
[2018-12-20] MEDS: ATORVASTATIN 40 MG TABLET PO SCH (08:28)
[2018-12-20] MEDS: PANTOPRAZOLE 40 MG TABLET PO SCH (08:29)
[2018-12-20] MEDS: ENOXAPARIN 40 MG/0.4 ML SYRINGE SUBCUT SCH (08:29)
[2018-12-20] MEDS: CARBOXYMETHYLCELLULOSE 1% OPH SOLN BOTH EYES SCH ×3 (08:30→21:00)
[2018-12-20] MEDS: CARVEDILOL 6.25 MG TABLET PO SCH ×2 (08:33→20:57)
[2018-12-20] MEDS: MONTELUKAST 10 MG TABLET PO SCH (17:40)
[2018-12-20] MEDS: CITALOPRAM 20 MG TABLET PO SCH (20:58)
[2018-12-21] MEDS: methylPREDNISolone SOD SUC 40 MG/1 ML VIAL IV SCH ×3 (00:51→16:21)
[2018-12-21] MEDS: ALBUTEROL/IPRATROPIUM 3 ML NEB RESP TX SCH ×6 (02:16→23:15)
[2018-12-21 05:52] LABS: Calcium 8.8 MG/DL (8.5-10.1); Osmolality,Calculated 295.5 MOS/KG (273-304)
[2018-12-21] MEDS: BUDESONIDE 0.5 MG/2 ML NEB RESP TX SCH ×2 (07:30→19:20)
[2018-12-21] MEDS: DORNASE ALFA 2.5 MG/2.5 ML VIAL RESP TX SCH ×2 (07:30→19:30)
[2018-12-21] MEDS: HYOSCYAMINE 0.125 MG TABLET SL SCH ×2 (08:35→16:23)
[2018-12-21] MEDS: DOCUSATE SODIUM 100 MG CAPSULE PO SCH ×2 (08:35→20:19)
[2018-12-21] MEDS: METOCLOPRAMIDE 5 MG TABLET PO SCH ×4 (08:35→20:19)
[2018-12-21] MEDS: PANTOPRAZOLE 40 MG TABLET PO SCH (08:36)
[2018-12-21] MEDS: THEOPHYLLINE ER 300 MG TABLET PO SCH ×2 (08:36→16:21)
[2018-12-21] MEDS: TOLTERODINE LA 4 MG CAPSULE PO SCH (08:36)
[2018-12-21] MEDS: CARBOXYMETHYLCELLULOSE 1% OPH SOLN BOTH EYES SCH ×3 (08:36→20:19)
[2018-12-21] MEDS: ATORVASTATIN 40 MG TABLET PO SCH (08:36)
[2018-12-21] MEDS: FUROSEMIDE 40 MG TABLET PO SCH (08:36)
[2018-12-21] MEDS: MULTIVITAMIN (CENTRUM) TABLET PO SCH (08:36)
[2018-12-21] MEDS: cefTRIAXone 1,000 MG in SYRINGE 1 EACH IV SCH (08:36)
[2018-12-21] MEDS: CETIRIZINE 10 MG TABLET PO SCH (08:36)
[2018-12-21] MEDS: CARVEDILOL 6.25 MG TABLET PO SCH ×2 (08:36→20:19)
[2018-12-21] MEDS: ENOXAPARIN 40 MG/0.4 ML SYRINGE SUBCUT SCH (08:37)
[2018-12-21] MEDS: INSULIN LISPRO 100 UNIT/ML SUBCUT SCH ×4 (08:37→20:18)
[2018-12-21] MEDS: ASPIRIN 325 MG TABLET PO SCH (08:38)
[2018-12-21] MEDS ORDERED: INSULIN GLARGINE 100 UNIT/ML SUBCUT SCH (09:00)
[2018-12-21] MEDS: MONTELUKAST 10 MG TABLET PO SCH (16:21)
[2018-12-21] MEDS: CITALOPRAM 20 MG TABLET PO SCH (20:19)
[2018-12-22] MEDS: methylPREDNISolone SOD SUC 40 MG/1 ML VIAL IV SCH ×3 (01:21→16:54)
[2018-12-22] MEDS: ALBUTEROL/IPRATROPIUM 3 ML NEB RESP TX SCH ×5 (03:15→19:12)
[2018-12-22 05:50] LABS: Basophils % 0.2 % (0.0-0.8); Hematocrit 35.3 VOL% (35.7-47.0); Hemoglobin 11.1 GM/DL (12.0-16.0); Immature Granulocytes % 1.3 %; Immature Granulocytes Absolute 0.13 #; Lymphocytes # 0.6 10*3/uL (1.4-4.0); Lymphocytes % 6.5 % (21.3-54.2); Mean Corpuscular HGB Conc 31.4 GM/DL (32-36); Mean Corpuscular Volume 97.2 FL (87-102); Mean Platelet Volume 9.5 FL (9.6-12.0); Platelet Count 218 T/CUMM (130-400); Red Blood Count 3.63 MC/CUMM (3.8-5.5); Red Cell Distribution Width 13.5 % (9.3-17.3); White Blood Count 9.9 T/CUMM (4-12)
[2018-12-22 06:23] LABS: Albumin 3.1 G/DL (3.4-5.0); Bilirubin,Total 0.9 MG/DL (0.2-1.0); Calcium 8.9 MG/DL (8.5-10.1); Osmolality,Calculated 294.4 MOS/KG (273-304); Total Protein 5.5 G/DL (6.4-8.3)
[2018-12-22] MEDS: BUDESONIDE 0.5 MG/2 ML NEB RESP TX SCH ×2 (08:10→19:12)
[2018-12-22] MEDS: DORNASE ALFA 2.5 MG/2.5 ML VIAL RESP TX SCH ×2 (08:11→19:12)
[2018-12-22] MEDS: ATORVASTATIN 40 MG TABLET PO SCH (09:26)
[2018-12-22] MEDS: PANTOPRAZOLE 40 MG TABLET PO SCH (09:26)
[2018-12-22] MEDS: THEOPHYLLINE ER 300 MG TABLET PO SCH ×2 (09:26→16:53)
[2018-12-22] MEDS: MULTIVITAMIN (CENTRUM) TABLET PO SCH (09:26)
[2018-12-22] MEDS: FUROSEMIDE 40 MG TABLET PO SCH (09:26)
[2018-12-22] MEDS: TOLTERODINE LA 4 MG CAPSULE PO SCH (09:26)
[2018-12-22] MEDS: CARVEDILOL 6.25 MG TABLET PO SCH ×2 (09:26→20:54)
[2018-12-22] MEDS: METOCLOPRAMIDE 5 MG TABLET PO SCH ×4 (09:26→20:55)
[2018-12-22] MEDS: HYOSCYAMINE 0.125 MG TABLET SL SCH ×2 (09:26→16:53)
[2018-12-22] MEDS: CETIRIZINE 10 MG TABLET PO SCH (09:26)
[2018-12-22] MEDS: INSULIN GLARGINE 100 UNIT/ML SUBCUT SCH (09:27)
[2018-12-22] MEDS: ASPIRIN 325 MG TABLET PO SCH (09:27)
[2018-12-22] MEDS: DOCUSATE SODIUM 100 MG CAPSULE PO SCH ×2 (09:27→20:55)
[2018-12-22] MEDS: INSULIN LISPRO 100 UNIT/ML SUBCUT SCH ×4 (09:27→21:15)
[2018-12-22] MEDS: ENOXAPARIN 40 MG/0.4 ML SYRINGE SUBCUT SCH (09:28)
[2018-12-22] MEDS: cefTRIAXone 1,000 MG in SYRINGE 1 EACH IV SCH (09:31)
[2018-12-22] MEDS: CARBOXYMETHYLCELLULOSE 1% OPH SOLN BOTH EYES SCH ×3 (09:38→20:55)
[2018-12-22] MEDS: MONTELUKAST 10 MG TABLET PO SCH (16:53)
[2018-12-22] MEDS: CITALOPRAM 20 MG TABLET PO SCH (20:54)
[2018-12-23] MEDS: ALBUTEROL/IPRATROPIUM 3 ML NEB RESP TX SCH ×7 (00:30→23:17)
[2018-12-23] MEDS: methylPREDNISolone SOD SUC 40 MG/1 ML VIAL IV SCH ×3 (01:00→16:18)
[2018-12-23 06:09] LABS: Calcium 8.6 MG/DL (8.5-10.1); Osmolality,Calculated 295.4 MOS/KG (273-304)
[2018-12-23] MEDS: BUDESONIDE 0.5 MG/2 ML NEB RESP TX SCH ×2 (07:15→19:27)
[2018-12-23] MEDS: DORNASE ALFA 2.5 MG/2.5 ML VIAL RESP TX SCH ×2 (07:20→19:35)
[2018-12-23] MEDS: FUROSEMIDE 40 MG TABLET PO SCH (09:49)
[2018-12-23] MEDS: PANTOPRAZOLE 40 MG TABLET PO SCH (09:49)
[2018-12-23] MEDS: DOCUSATE SODIUM 100 MG CAPSULE PO SCH ×2 (09:49→20:49)
[2018-12-23] MEDS: HYOSCYAMINE 0.125 MG TABLET SL SCH ×2 (09:49→16:18)
[2018-12-23] MEDS: METOCLOPRAMIDE 5 MG TABLET PO SCH ×4 (09:49→20:49)
[2018-12-23] MEDS: THEOPHYLLINE ER 300 MG TABLET PO SCH ×2 (09:49→16:18)
[2018-12-23] MEDS: TOLTERODINE LA 4 MG CAPSULE PO SCH (09:49)
[2018-12-23] MEDS: CARVEDILOL 6.25 MG TABLET PO SCH ×2 (09:49→20:49)
[2018-12-23] MEDS: CETIRIZINE 10 MG TABLET PO SCH (09:49)
[2018-12-23] MEDS: ENOXAPARIN 40 MG/0.4 ML SYRINGE SUBCUT SCH (09:49)
[2018-12-23] MEDS: ATORVASTATIN 40 MG TABLET PO SCH (09:50)
[2018-12-23] MEDS: ASPIRIN 325 MG TABLET PO SCH (09:50)
[2018-12-23] MEDS: MULTIVITAMIN (CENTRUM) TABLET PO SCH (09:50)
[2018-12-23] MEDS: INSULIN LISPRO 100 UNIT/ML SUBCUT SCH ×4 (09:51→20:50)
[2018-12-23] MEDS: cefTRIAXone 1,000 MG in SYRINGE 1 EACH IV SCH (09:51)
[2018-12-23] MEDS: INSULIN GLARGINE 100 UNIT/ML SUBCUT SCH (09:52)
[2018-12-23] MEDS: CARBOXYMETHYLCELLULOSE 1% OPH SOLN BOTH EYES SCH ×3 (10:48→20:53)
[2018-12-23] MEDS: MONTELUKAST 10 MG TABLET PO SCH (16:18)
[2018-12-23] MEDS: CITALOPRAM 20 MG TABLET PO SCH (20:49)
[2018-12-24] MEDS: ALBUTEROL/IPRATROPIUM 3 ML NEB RESP TX SCH ×2 (03:30→07:21)
[2018-12-24 04:35] LABS: Basophils % 0.2 % (0.0-0.8); Hemoglobin 11.1 GM/DL (12.0-16.0); Immature Granulocytes % 1.6 %; Immature Granulocytes Absolute 0.17 #; Lymphocytes % 9.7 % (21.3-54.2); Mean Corpuscular HGB Conc 32.6 GM/DL (32-36); Mean Corpuscular Volume 95.5 FL (87-102); Mean Platelet Volume 9.8 FL (9.6-12.0); Monocytes % 8.3 % (1.7-12.7); Neutrophils % 80.2 % (38.7-73.9); Platelet Count 223 T/CUMM (130-400); Red Blood Count 3.56 MC/CUMM (3.8-5.5); Red Cell Distribution Width 13.6 % (9.3-17.3); White Blood Count 10.7 T/CUMM (4-12)
[2018-12-24 05:05] LABS: Osmolality,Calculated 293.3 MOS/KG (273-304)
[2018-12-24] MEDS: BUDESONIDE 0.5 MG/2 ML NEB RESP TX SCH (07:21)
[2018-12-24] MEDS: DORNASE ALFA 2.5 MG/2.5 ML VIAL RESP TX SCH (07:21)
[2018-12-24] MEDS: INSULIN LISPRO 100 UNIT/ML SUBCUT SCH (07:49)
[2018-12-24 07:51] VITALS: BP 137/76
[2018-12-24] MEDS ORDERED: predniSONE 20 MG TABLET PO SCH (09:00)
[2018-12-24] MEDS: ENOXAPARIN 40 MG/0.4 ML SYRINGE SUBCUT SCH (09:03)
[2018-12-24] MEDS: INSULIN GLARGINE 100 UNIT/ML SUBCUT SCH (09:03)
[2018-12-24] MEDS: CETIRIZINE 10 MG TABLET PO SCH (09:04)
[2018-12-24] MEDS: FUROSEMIDE 40 MG TABLET PO SCH (09:04)
[2018-12-24] MEDS: PANTOPRAZOLE 40 MG TABLET PO SCH (09:04)
[2018-12-24] MEDS: ATORVASTATIN 40 MG TABLET PO SCH (09:04)
[2018-12-24] MEDS: DOCUSATE SODIUM 100 MG CAPSULE PO SCH (09:04)
[2018-12-24] MEDS: METOCLOPRAMIDE 5 MG TABLET PO SCH (09:04)
[2018-12-24] MEDS: HYOSCYAMINE 0.125 MG TABLET SL SCH (09:04)
[2018-12-24] MEDS: CARVEDILOL 6.25 MG TABLET PO SCH (09:04)
[2018-12-24] MEDS: ASPIRIN 325 MG TABLET PO SCH (09:04)
[2018-12-24] MEDS: MULTIVITAMIN (CENTRUM) TABLET PO SCH (09:04)
[2018-12-24] MEDS: THEOPHYLLINE ER 300 MG TABLET PO SCH (09:04)
[2018-12-24] MEDS: TOLTERODINE LA 4 MG CAPSULE PO SCH (09:04)
[2018-12-24] MEDS: CARBOXYMETHYLCELLULOSE 1% OPH SOLN BOTH EYES SCH (09:09)
== END 2018-12-24 11:16 | disposition home or self-care (01) | DRG 191 ==
LOC: EDUNIT# → EDBD → N.ED 06:00 → N.EDINP 08:28 → N.2E 08:49
PROVIDERS: ADMIT Family Medicine; ATTEND Family Medicine

== ENCOUNTER 2021-08-20 14:46 | Inpatient (IN) ==
[2021-08-20 15:46] LABS: Basophils % 0.2 % (0.0-0.8); Eosinophils # 0.2 10*3/uL (0.0-0.87); Eosinophils % 2.7 % (0.00-10.9); Hematocrit 32.1 VOL% (35.7-47.0); Hemoglobin 10.1 GM/DL (12.0-16.0); Immature Granulocytes % 0.4 %; Immature Granulocytes Absolute 0.02 #; Lymphocytes # 0.9 10*3/uL (1.4-4.0); Lymphocytes % 16.3 % (21.3-54.2); Mean Corpuscular HGB Conc 31.5 GM/DL (32-36); Mean Corpuscular Volume 99.7 FL (87-102); Mean Platelet Volume 9.1 FL (9.6-12.0); Monocytes % 11.1 % (1.7-12.7); NRBC # 0.04 10*3/uL; Neutrophils % 69.3 % (38.7-73.9); Platelet Count 183 T/CUMM (130-400); Red Blood Count 3.22 MC/CUMM (3.8-5.5); Red Cell Distribution Width 15.3 % (9.3-17.3); White Blood Count 5.7 T/CUMM (4-12)
[2021-08-20] MEDS ORDERED: KETOROLAC 30 MG/1 ML VIAL IV STA (15:51)
[2021-08-20 16:05] LABS: Albumin 2.8 G/DL (3.4-5.0); Bilirubin,Total 0.5 MG/DL (0.20-1.00); Calcium 8.7 MG/DL (8.5-10.1); Osmolality,Calculated 288.1 MOS/KG (273-304); Potassium 3.1 MMOL/L (3.5-5.1); Total Protein 6.1 G/DL (6.4-8.2)
[2021-08-20] MEDS ORDERED: POTASSIUM CHLORIDE 20 MEQ TABLET PO STA (16:19)
[2021-08-20] MEDS ORDERED: GLUCAGON 1 MG VIAL IM PRN (16:21)
[2021-08-20] MEDS ORDERED: ONDANSETRON 4 MG/2 ML VIAL IV PRN (16:21)
[2021-08-20] MEDS ORDERED: clonazePAM 0.5 MG TABLET PO PRN (16:23)
[2021-08-20] MEDS ORDERED: DEXTROSE 50% 25 GM/50 ML SYRINGE IV PRN (16:31)
[2021-08-20] MEDS ORDERED: BACITRACIN OINT 0.9 GM PACK TOP PRN (17:58)
[2021-08-20] MEDS ORDERED: ALBUTEROL 2.5 MG/3 ML NEB RESP TX PRN (19:21)
[2021-08-20] MEDS ORDERED: predniSONE 10 MG TABLET PO PRN (19:21)
[2021-08-20] MEDS: ALBUTEROL/IPRATROPIUM 3 ML NEB RESP TX SCH ×2 (19:40→23:49)
[2021-08-20] MEDS: DORNASE ALFA 2.5 MG/2.5 ML VIAL RESP TX SCH (19:45)
[2021-08-20] MEDS ORDERED: POTASSIUM CHLORIDE INJ 10 MEQ in SODIUM CHLORIDE 0.9% 1,000 ML IV SCH (22:00)
[2021-08-20] MEDS: CITALOPRAM 20 MG TABLET PO SCH (22:17)
[2021-08-20] MEDS: DOCUSATE SODIUM 100 MG CAPSULE PO SCH (22:17)
[2021-08-20] MEDS: POLYVINYL ALCOHOL 1.4% OPH SOLN 15 ML BOTTLE BOTH EYES SCH (22:18)
[2021-08-20] MEDS: HYOSCYAMINE 0.125 MG TABLET SL SCH (22:26)
[2021-08-20] MEDS: THEOPHYLLINE ER 300 MG TABLET PO SCH (22:27)
[2021-08-20] MEDS: carvediloL 6.25 MG TABLET PO SCH (22:27)
[2021-08-20] MEDS: MONTELUKAST 10 MG TABLET PO SCH (22:27)
[2021-08-21] MEDS: POTASSIUM CHLORIDE RIDER 10 MEQ/100 ML PREMIX IV PRN ×4 (03:23→09:26)
[2021-08-21] MEDS: SODIUM CHLORIDE 0.9% 1,000 ML IV SCH (03:23)
[2021-08-21] MEDS: ALBUTEROL/IPRATROPIUM 3 ML NEB RESP TX SCH ×6 (03:40→23:59)
[2021-08-21 05:52] LABS: Basophils % 0.2 % (0.0-0.8); Eosinophils # 0.1 10*3/uL (0.0-0.87); Eosinophils % 1.8 % (0.00-10.9); Hemoglobin 10.1 GM/DL (12.0-16.0); Immature Granulocytes % 0.8 %; Immature Granulocytes Absolute 0.04 #; Lymphocytes # 1.2 10*3/uL (1.4-4.0); Lymphocytes % 23.8 % (21.3-54.2); Mean Corpuscular HGB Conc 31.6 GM/DL (32-36); Mean Corpuscular Volume 99.7 FL (87-102); Mean Platelet Volume 9.3 FL (9.6-12.0); Monocytes % 11.4 % (1.7-12.7); Platelet Count 180 T/CUMM (130-400); Red Blood Count 3.21 MC/CUMM (3.8-5.5); Red Cell Distribution Width 15.4 % (9.3-17.3)
[2021-08-21 06:36] LABS: Albumin 2.7 G/DL (3.4-5.0); Bilirubin,Total 0.5 MG/DL (0.20-1.00); Calcium 8.6 MG/DL (8.5-10.1); Osmolality,Calculated 288.7 MOS/KG (273-304); Potassium 3.2 MMOL/L (3.5-5.1); Total Protein 5.9 G/DL (6.4-8.2)
[2021-08-21] MEDS: DORNASE ALFA 2.5 MG/2.5 ML VIAL RESP TX SCH ×2 (07:40→19:58)
[2021-08-21] MEDS ORDERED: DEXLANSOPRAZOLE 60 MG PO SCH (09:00)
[2021-08-21] MEDS ORDERED: predniSONE 20 MG TABLET PO SCH (09:00)
[2021-08-21] MEDS: DOCUSATE SODIUM 100 MG CAPSULE PO SCH ×2 (09:27→20:34)
[2021-08-21] MEDS: MULTIVITAMIN (CENTRUM) TABLET PO SCH (09:27)
[2021-08-21] MEDS: ASPIRIN 325 MG TABLET PO SCH (09:27)
[2021-08-21] MEDS: TOLTERODINE LA 2 MG CAPSULE PO SCH (09:28)
[2021-08-21] MEDS: FUROSEMIDE 40 MG TABLET PO SCH (09:29)
[2021-08-21] MEDS: HYOSCYAMINE 0.125 MG TABLET SL SCH ×2 (09:29→16:57)
[2021-08-21] MEDS: CETIRIZINE 10 MG TABLET PO SCH (09:29)
[2021-08-21] MEDS: PANTOPRAZOLE 40 MG TABLET PO SCH (09:30)
[2021-08-21] MEDS: carvediloL 6.25 MG TABLET PO SCH ×2 (09:30→16:58)
[2021-08-21] MEDS: ATORVASTATIN 40 MG TABLET PO SCH (09:30)
[2021-08-21] MEDS: ROFLUMILAST 500 MCG TABLET PO SCH (09:30)
[2021-08-21] MEDS: THEOPHYLLINE ER 300 MG TABLET PO SCH ×2 (09:30→16:57)
[2021-08-21] MEDS: NON-FORMULARY MEDICATION (Fluticasone-Umeclidin-Vilanter [Trelegy Ellipta] 100-62.5-25 mcg INH SCH (09:31)
[2021-08-21] MEDS: POLYVINYL ALCOHOL 1.4% OPH SOLN 15 ML BOTTLE BOTH EYES SCH ×3 (11:12→20:35)
[2021-08-21] MEDS ORDERED: POTASSIUM CHLORIDE 20 MEQ TABLET PO SCH (11:30)
[2021-08-21] MEDS: MONTELUKAST 10 MG TABLET PO SCH (16:57)
[2021-08-21] MEDS: CITALOPRAM 20 MG TABLET PO SCH (20:34)
[2021-08-22] MEDS: SODIUM CHLORIDE 0.9% 1,000 ML IV SCH ×2 (03:56→16:59)
[2021-08-22] MEDS: ALBUTEROL/IPRATROPIUM 3 ML NEB RESP TX SCH ×6 (04:06→23:10)
[2021-08-22 06:01] LABS: Basophils % 0.2 % (0.0-0.8); Eosinophils # 0.2 10*3/uL (0.0-0.87); Hematocrit 34.1 VOL% (35.7-47.0); Hemoglobin 10.9 GM/DL (12.0-16.0); Immature Granulocytes % 0.5 %; Immature Granulocytes Absolute 0.03 #; Lymphocytes # 1.4 10*3/uL (1.4-4.0); Lymphocytes % 24.5 % (21.3-54.2); Mean Corpuscular Volume 99.4 FL (87-102); Mean Platelet Volume 10.1 FL (9.6-12.0); Neutrophils % 56.8 % (38.7-73.9); Platelet Count 189 T/CUMM (130-400); Red Blood Count 3.43 MC/CUMM (3.8-5.5); Red Cell Distribution Width 15.7 % (9.3-17.3); White Blood Count 5.5 T/CUMM (4-12)
[2021-08-22] MEDS: DORNASE ALFA 2.5 MG/2.5 ML VIAL RESP TX SCH ×2 (07:56→19:28)
[2021-08-22] MEDS: TOLTERODINE LA 2 MG CAPSULE PO SCH (10:42)
[2021-08-22] MEDS: ASPIRIN 325 MG TABLET PO SCH ×2 (10:42→11:22)
[2021-08-22] MEDS: MULTIVITAMIN (CENTRUM) TABLET PO SCH (10:42)
[2021-08-22] MEDS: FUROSEMIDE 40 MG TABLET PO SCH (10:42)
[2021-08-22] MEDS: DOCUSATE SODIUM 100 MG CAPSULE PO SCH ×2 (10:42→20:17)
[2021-08-22] MEDS: CETIRIZINE 10 MG TABLET PO SCH (10:42)
[2021-08-22] MEDS: carvediloL 6.25 MG TABLET PO SCH ×2 (10:43→16:58)
[2021-08-22] MEDS: POTASSIUM CHLORIDE 20 MEQ TABLET PO SCH ×2 (10:43→20:18)
[2021-08-22] MEDS: PANTOPRAZOLE 40 MG TABLET PO SCH (10:43)
[2021-08-22] MEDS: ROFLUMILAST 500 MCG TABLET PO SCH (10:43)
[2021-08-22] MEDS: HYOSCYAMINE 0.125 MG TABLET SL SCH ×2 (10:43→16:59)
[2021-08-22] MEDS: ATORVASTATIN 40 MG TABLET PO SCH (10:43)
[2021-08-22] MEDS: NON-FORMULARY MEDICATION (Fluticasone-Umeclidin-Vilanter [Trelegy Ellipta] 100-62.5-25 mcg INH SCH (10:53)
[2021-08-22] MEDS: POLYVINYL ALCOHOL 1.4% OPH SOLN 15 ML BOTTLE BOTH EYES SCH ×3 (10:53→20:17)
[2021-08-22] MEDS: THEOPHYLLINE ER 300 MG TABLET PO SCH ×2 (10:53→16:58)
[2021-08-22 12:54] LABS: PT Patient Result 11.3 SECS (10.5-12.0)
[2021-08-22] MEDS: MONTELUKAST 10 MG TABLET PO SCH (16:58)
[2021-08-22] MEDS: CITALOPRAM 20 MG TABLET PO SCH (20:17)
[2021-08-22] MEDS: ACETAMINOPHEN 325 MG TABLET PO PRN (20:18)
[2021-08-23] MEDS: SODIUM CHLORIDE 0.9% 1,000 ML IV SCH (01:45)
[2021-08-23] MEDS: ALBUTEROL/IPRATROPIUM 3 ML NEB RESP TX SCH ×5 (02:10→19:25)
[2021-08-23 05:20] LABS: Basophils % 0.2 % (0.0-0.8); Eosinophils # 0.3 10*3/uL (0.0-0.87); Eosinophils % 5.5 % (0.00-10.9); Hemoglobin 10.2 GM/DL (12.0-16.0); Immature Granulocytes % 0.4 %; Immature Granulocytes Absolute 0.02 #; Lymphocytes # 1.4 10*3/uL (1.4-4.0); Lymphocytes % 28.8 % (21.3-54.2); Mean Corpuscular HGB Conc 30.9 GM/DL (32-36); Mean Corpuscular Volume 99.4 FL (87-102); Mean Platelet Volume 9.9 FL (9.6-12.0); Monocytes % 13.7 % (1.7-12.7); Neutrophils % 51.4 % (38.7-73.9); Platelet Count 186 T/CUMM (130-400); Red Blood Count 3.32 MC/CUMM (3.8-5.5); Red Cell Distribution Width 15.5 % (9.3-17.3); White Blood Count 4.7 T/CUMM (4-12)
[2021-08-23 05:40] LABS: Albumin 2.7 G/DL (3.4-5.0); Bilirubin,Total 0.4 MG/DL (0.20-1.00); Calcium 8.4 MG/DL (8.5-10.1); Osmolality,Calculated 290.7 MOS/KG (273-304); Potassium 4.1 MMOL/L (3.5-5.1); Total Protein 6.1 G/DL (6.4-8.2)
[2021-08-23 06:23] LABS: Calcium 8.2 MG/DL (8.5-10.1); Osmolality,Calculated 294.4 MOS/KG (273-304); Potassium 4.2 MMOL/L (3.5-5.1)
[2021-08-23] MEDS: DORNASE ALFA 2.5 MG/2.5 ML VIAL RESP TX SCH ×2 (07:20→19:35)
[2021-08-23] MEDS ORDERED: MAGNESIUM SULF RIDER 2 GM/50 ML PREMIX IV ONE (08:01)
[2021-08-23] MEDS: carvediloL 6.25 MG TABLET PO SCH ×2 (09:06→16:13)
[2021-08-23] MEDS: ROFLUMILAST 500 MCG TABLET PO SCH (09:06)
[2021-08-23] MEDS: MAGNESIUM SULF INJ 2 GM in SODIUM CHLORIDE 0.9% 1,000 ML IV SCH (09:06)
[2021-08-23] MEDS: THEOPHYLLINE ER 300 MG TABLET PO SCH ×2 (09:06→16:13)
[2021-08-23] MEDS: ATORVASTATIN 40 MG TABLET PO SCH (09:07)
[2021-08-23] MEDS: DOCUSATE SODIUM 100 MG CAPSULE PO SCH ×2 (09:07→20:22)
[2021-08-23] MEDS: POTASSIUM CHLORIDE 20 MEQ TABLET PO SCH (09:07)
[2021-08-23] MEDS: FUROSEMIDE 40 MG TABLET PO SCH (09:08)
[2021-08-23] MEDS: HYOSCYAMINE 0.125 MG TABLET SL SCH ×2 (09:08→16:12)
[2021-08-23] MEDS: CETIRIZINE 10 MG TABLET PO SCH (09:08)
[2021-08-23] MEDS: MULTIVITAMIN (CENTRUM) TABLET PO SCH (09:08)
[2021-08-23] MEDS: TOLTERODINE LA 2 MG CAPSULE PO SCH (09:08)
[2021-08-23] MEDS: PANTOPRAZOLE 40 MG TABLET PO SCH (09:08)
[2021-08-23] MEDS: POLYVINYL ALCOHOL 1.4% OPH SOLN 15 ML BOTTLE BOTH EYES SCH ×3 (09:08→20:22)
[2021-08-23] MEDS: NON-FORMULARY MEDICATION (Fluticasone-Umeclidin-Vilanter [Trelegy Ellipta] 100-62.5-25 mcg INH SCH (09:09)
[2021-08-23] MEDS: MONTELUKAST 10 MG TABLET PO SCH (16:13)
[2021-08-23] MEDS: CITALOPRAM 20 MG TABLET PO SCH (20:22)
[2021-08-24] MEDS: ALBUTEROL/IPRATROPIUM 3 ML NEB RESP TX SCH ×7 (00:45→23:00)
[2021-08-24 05:14] LABS: Basophils % 0.2 % (0.0-0.8); Eosinophils # 0.3 10*3/uL (0.0-0.87); Eosinophils % 5.2 % (0.00-10.9); Hematocrit 31.9 VOL% (35.7-47.0); Hemoglobin 10.2 GM/DL (12.0-16.0); Immature Granulocytes % 0.4 %; Immature Granulocytes Absolute 0.02 #; Lymphocytes # 1.4 10*3/uL (1.4-4.0); Lymphocytes % 26.3 % (21.3-54.2); Mean Corpuscular Volume 99.1 FL (87-102); Mean Platelet Volume 9.4 FL (9.6-12.0); Monocytes % 14.3 % (1.7-12.7); Neutrophils % 53.6 % (38.7-73.9); Platelet Count 179 T/CUMM (130-400); Red Blood Count 3.22 MC/CUMM (3.8-5.5); Red Cell Distribution Width 15.7 % (9.3-17.3); White Blood Count 5.2 T/CUMM (4-12)
[2021-08-24 05:43] LABS: Alanine Aminotransferase 18 U/L (13-56); Albumin 2.5 G/DL (3.4-5.0); Alkaline Phosphatase 59 U/L (45-117); Aspartate Amino Transferase 13 U/L (0-37); Bilirubin,Total < 0.39 MG/DL (0.20-1.00); Blood Urea Nitrogen 21 MG/DL (7-18); Calcium 8.7 MG/DL (8.5-10.1); Carbon Dioxide 28 MMOL/L (21-32); Estimated Glom Filtration Rate 47 ML/MIN; Glucose 117 MG/DL (74-106); Osmolality,Calculated 289.8 MOS/KG (273-304); Potassium 3.9 MMOL/L (3.5-5.1); Sodium 144 MMOL/L (136-145); Total Protein 5.8 G/DL (6.4-8.2)
[2021-08-24] MEDS: MAGNESIUM SULF INJ 2 GM in SODIUM CHLORIDE 0.9% 1,000 ML IV SCH (06:34)
[2021-08-24] MEDS: HYOSCYAMINE 0.125 MG TABLET SL SCH ×2 (09:13→18:43)
[2021-08-24] MEDS: THEOPHYLLINE ER 300 MG TABLET PO SCH ×2 (09:13→18:43)
[2021-08-24] MEDS: ROFLUMILAST 500 MCG TABLET PO SCH (09:13)
[2021-08-24] MEDS: POTASSIUM CHLORIDE 20 MEQ TABLET PO SCH (09:13)
[2021-08-24] MEDS: TOLTERODINE LA 2 MG CAPSULE PO SCH (09:14)
[2021-08-24] MEDS: PANTOPRAZOLE 40 MG TABLET PO SCH (09:14)
[2021-08-24] MEDS: FUROSEMIDE 40 MG TABLET PO SCH (09:14)
[2021-08-24] MEDS: ATORVASTATIN 40 MG TABLET PO SCH (09:14)
[2021-08-24] MEDS: CETIRIZINE 10 MG TABLET PO SCH (09:14)
[2021-08-24] MEDS: carvediloL 6.25 MG TABLET PO SCH ×2 (09:14→18:43)
[2021-08-24] MEDS: DOCUSATE SODIUM 100 MG CAPSULE PO SCH ×2 (09:14→21:19)
[2021-08-24] MEDS: MULTIVITAMIN (CENTRUM) TABLET PO SCH (09:14)
[2021-08-24] MEDS: POLYVINYL ALCOHOL 1.4% OPH SOLN 15 ML BOTTLE BOTH EYES SCH ×3 (09:17→21:18)
[2021-08-24] MEDS: NON-FORMULARY MEDICATION (Fluticasone-Umeclidin-Vilanter [Trelegy Ellipta] 100-62.5-25 mcg INH SCH (09:18)
[2021-08-24] MEDS: DORNASE ALFA 2.5 MG/2.5 ML VIAL RESP TX SCH ×2 (11:29→19:35)
[2021-08-24] MEDS: ACETAMINOPHEN 325 MG TABLET PO PRN (13:46)
[2021-08-24] MEDS: MONTELUKAST 10 MG TABLET PO SCH (18:43)
[2021-08-24] MEDS: CITALOPRAM 20 MG TABLET PO SCH (21:19)
[2021-08-25] MEDS: MAGNESIUM SULF INJ 2 GM in SODIUM CHLORIDE 0.9% 1,000 ML IV SCH ×2 (01:23→20:58)
[2021-08-25] MEDS: ALBUTEROL/IPRATROPIUM 3 ML NEB RESP TX SCH ×6 (03:40→23:59)
[2021-08-25 05:39] LABS: Basophils % 0.2 % (0.0-0.8); Eosinophils # 0.3 10*3/uL (0.0-0.87); Eosinophils % 5.8 % (0.00-10.9); Hematocrit 30.4 VOL% (35.7-47.0); Hemoglobin 9.3 GM/DL (12.0-16.0); Immature Granulocytes % 0.4 %; Immature Granulocytes Absolute 0.02 #; Lymphocytes # 1.3 10*3/uL (1.4-4.0); Lymphocytes % 27.7 % (21.3-54.2); Mean Corpuscular HGB Conc 30.6 GM/DL (32-36); Mean Platelet Volume 9.9 FL (9.6-12.0); Monocytes % 12.7 % (1.7-12.7); Neutrophils % 53.2 % (38.7-73.9); Platelet Count 169 T/CUMM (130-400); Red Blood Count 3.01 MC/CUMM (3.8-5.5); Red Cell Distribution Width 15.7 % (9.3-17.3); White Blood Count 4.8 T/CUMM (4-12)
[2021-08-25 05:56] LABS: Calcium 8.5 MG/DL (8.5-10.1); Osmolality,Calculated 290.7 MOS/KG (273-304); Potassium 3.9 MMOL/L (3.5-5.1)
[2021-08-25] MEDS: DORNASE ALFA 2.5 MG/2.5 ML VIAL RESP TX SCH ×2 (07:10→19:20)
[2021-08-25] MEDS: ROFLUMILAST 500 MCG TABLET PO SCH (08:25)
[2021-08-25] MEDS: MULTIVITAMIN (CENTRUM) TABLET PO SCH (08:26)
[2021-08-25] MEDS: TOLTERODINE LA 2 MG CAPSULE PO SCH (08:26)
[2021-08-25] MEDS: PANTOPRAZOLE 40 MG TABLET PO SCH (08:26)
[2021-08-25] MEDS: THEOPHYLLINE ER 300 MG TABLET PO SCH ×2 (08:26→16:51)
[2021-08-25] MEDS: HYOSCYAMINE 0.125 MG TABLET SL SCH ×2 (08:26→16:51)
[2021-08-25] MEDS: carvediloL 6.25 MG TABLET PO SCH ×2 (08:26→16:51)
[2021-08-25] MEDS: ATORVASTATIN 40 MG TABLET PO SCH (08:26)
[2021-08-25] MEDS: POTASSIUM CHLORIDE 20 MEQ TABLET PO SCH (08:27)
[2021-08-25] MEDS: DOCUSATE SODIUM 100 MG CAPSULE PO SCH ×2 (08:27→20:54)
[2021-08-25] MEDS: CETIRIZINE 10 MG TABLET PO SCH (08:27)
[2021-08-25] MEDS: FUROSEMIDE 40 MG TABLET PO SCH (08:27)
[2021-08-25] MEDS: ACETAMINOPHEN 325 MG TABLET PO PRN ×2 (08:27→20:55)
[2021-08-25] MEDS: NON-FORMULARY MEDICATION (Fluticasone-Umeclidin-Vilanter [Trelegy Ellipta] 100-62.5-25 mcg INH SCH (08:29)
[2021-08-25] MEDS: POLYVINYL ALCOHOL 1.4% OPH SOLN 15 ML BOTTLE BOTH EYES SCH ×3 (08:31→20:55)
[2021-08-25] MEDS: MONTELUKAST 10 MG TABLET PO SCH (16:51)
[2021-08-25] MEDS: CITALOPRAM 20 MG TABLET PO SCH (20:54)
[2021-08-26] MEDS: ALBUTEROL/IPRATROPIUM 3 ML NEB RESP TX SCH ×6 (04:00→23:50)
[2021-08-26 05:32] LABS: Basophils % 0.2 % (0.0-0.8); Eosinophils # 0.3 10*3/uL (0.0-0.87); Eosinophils % 7.5 % (0.00-10.9); Hemoglobin 9.9 GM/DL (12.0-16.0); Immature Granulocytes % 0.2 %; Immature Granulocytes Absolute 0.01 #; Lymphocytes # 1.3 10*3/uL (1.4-4.0); Lymphocytes % 30.6 % (21.3-54.2); Mean Corpuscular HGB Conc 31.9 GM/DL (32-36); Mean Corpuscular Volume 99.4 FL (87-102); Mean Platelet Volume 9.3 FL (9.6-12.0); Monocytes % 12.4 % (1.7-12.7); Neutrophils % 49.1 % (38.7-73.9); Platelet Count 169 T/CUMM (130-400); Red Blood Count 3.12 MC/CUMM (3.8-5.5); Red Cell Distribution Width 15.4 % (9.3-17.3); White Blood Count 4.1 T/CUMM (4-12)
[2021-08-26 05:59] LABS: Calcium 8.5 MG/DL (8.5-10.1); Potassium 3.9 MMOL/L (3.5-5.1)
[2021-08-26 06:00] LABS: Calcium 8.2 MG/DL (8.5-10.1); Osmolality,Calculated 285.8 MOS/KG (273-304)
[2021-08-26] MEDS: DORNASE ALFA 2.5 MG/2.5 ML VIAL RESP TX SCH ×2 (07:32→19:50)
[2021-08-26] MEDS ORDERED: DIAZEPAM 5 MG TABLET PO ONE (09:14)
[2021-08-26] MEDS ORDERED: DEXTROSE 10% 250 ML BAG IV PRN (11:00)
[2021-08-26] MEDS: ROFLUMILAST 500 MCG TABLET PO SCH (12:12)
[2021-08-26] MEDS: HYOSCYAMINE 0.125 MG TABLET SL SCH ×2 (12:13→17:52)
[2021-08-26] MEDS: FUROSEMIDE 40 MG TABLET PO SCH (12:13)
[2021-08-26] MEDS: MULTIVITAMIN (CENTRUM) TABLET PO SCH (12:13)
[2021-08-26] MEDS: TOLTERODINE LA 2 MG CAPSULE PO SCH (12:13)
[2021-08-26] MEDS: ATORVASTATIN 40 MG TABLET PO SCH (12:13)
[2021-08-26] MEDS: CETIRIZINE 10 MG TABLET PO SCH (12:13)
[2021-08-26] MEDS: POTASSIUM CHLORIDE 20 MEQ TABLET PO SCH (12:13)
[2021-08-26] MEDS: carvediloL 6.25 MG TABLET PO SCH ×2 (12:14→17:52)
[2021-08-26] MEDS: THEOPHYLLINE ER 300 MG TABLET PO SCH ×2 (12:14→17:52)
[2021-08-26] MEDS: DOCUSATE SODIUM 100 MG CAPSULE PO SCH ×2 (12:14→20:22)
[2021-08-26] MEDS: PANTOPRAZOLE 40 MG TABLET PO SCH (12:14)
[2021-08-26] MEDS: POLYVINYL ALCOHOL 1.4% OPH SOLN 15 ML BOTTLE BOTH EYES SCH ×3 (12:15→20:22)
[2021-08-26] MEDS: NON-FORMULARY MEDICATION (Fluticasone-Umeclidin-Vilanter [Trelegy Ellipta] 100-62.5-25 mcg INH SCH (12:15)
[2021-08-26] MEDS: ACETAMINOPHEN 325 MG TABLET PO PRN (13:23)
[2021-08-26] MEDS ORDERED: hydrALAZINE 20 MG/1 ML VIAL IV PRN (13:51)
[2021-08-26] MEDS ORDERED: hydrALAZINE 20 MG/1 ML VIAL IV ONE (13:51)
[2021-08-26] MEDS: MONTELUKAST 10 MG TABLET PO SCH (17:52)
[2021-08-26] MEDS: traMADol 50 MG TABLET PO PRN (17:53)
[2021-08-26] MEDS: MAGNESIUM SULF INJ 2 GM in SODIUM CHLORIDE 0.9% 1,000 ML IV SCH (17:58)
[2021-08-26] MEDS: CITALOPRAM 20 MG TABLET PO SCH (20:22)
[2021-08-27] MEDS: ALBUTEROL/IPRATROPIUM 3 ML NEB RESP TX SCH ×6 (03:37→22:39)
[2021-08-27 04:56] LABS: Basophils % 0.2 % (0.0-0.8); Eosinophils # 0.3 10*3/uL (0.0-0.87); Eosinophils % 3.9 % (0.00-10.9); Hematocrit 34.1 VOL% (35.7-47.0); Hemoglobin 10.8 GM/DL (12.0-16.0); Immature Granulocytes % 0.3 %; Immature Granulocytes Absolute 0.02 #; Lymphocytes # 1.1 10*3/uL (1.4-4.0); Lymphocytes % 16.7 % (21.3-54.2); Mean Corpuscular HGB Conc 31.7 GM/DL (32-36); Mean Corpuscular Volume 98.8 FL (87-102); Mean Platelet Volume 9.7 FL (9.6-12.0); Monocytes % 12.4 % (1.7-12.7); NRBC # 0.02 10*3/uL; Neutrophils % 66.5 % (38.7-73.9); Platelet Count 207 T/CUMM (130-400); Red Blood Count 3.45 MC/CUMM (3.8-5.5); Red Cell Distribution Width 15.6 % (9.3-17.3); White Blood Count 6.5 T/CUMM (4-12)
[2021-08-27 05:21] LABS: Albumin 2.8 G/DL (3.4-5.0); Bilirubin,Total 1.4 MG/DL (0.20-1.00); Calcium 8.7 MG/DL (8.5-10.1); Potassium 4.1 MMOL/L (3.5-5.1); Total Protein 6.4 G/DL (6.4-8.2)
[2021-08-27] MEDS: DORNASE ALFA 2.5 MG/2.5 ML VIAL RESP TX SCH ×2 (07:02→18:53)
[2021-08-27] MEDS: PANTOPRAZOLE 40 MG TABLET PO SCH (09:11)
[2021-08-27] MEDS: ROFLUMILAST 500 MCG TABLET PO SCH (09:11)
[2021-08-27] MEDS: ATORVASTATIN 40 MG TABLET PO SCH (09:12)
[2021-08-27] MEDS: CETIRIZINE 10 MG TABLET PO SCH (09:12)
[2021-08-27] MEDS: TOLTERODINE LA 2 MG CAPSULE PO SCH (09:12)
[2021-08-27] MEDS: HYOSCYAMINE 0.125 MG TABLET SL SCH ×2 (09:12→16:20)
[2021-08-27] MEDS: carvediloL 6.25 MG TABLET PO SCH ×2 (09:12→16:20)
[2021-08-27] MEDS: DOCUSATE SODIUM 100 MG CAPSULE PO SCH ×2 (09:12→20:21)
[2021-08-27] MEDS: THEOPHYLLINE ER 300 MG TABLET PO SCH ×2 (09:12→16:20)
[2021-08-27] MEDS: FUROSEMIDE 40 MG TABLET PO SCH (09:13)
[2021-08-27] MEDS: MULTIVITAMIN (CENTRUM) TABLET PO SCH (09:13)
[2021-08-27] MEDS: traMADol 50 MG TABLET PO PRN (09:13)
[2021-08-27] MEDS: POTASSIUM CHLORIDE 20 MEQ TABLET PO SCH (09:13)
[2021-08-27] MEDS: POLYVINYL ALCOHOL 1.4% OPH SOLN 15 ML BOTTLE BOTH EYES SCH ×3 (09:18→20:21)
[2021-08-27] MEDS: NON-FORMULARY MEDICATION (Fluticasone-Umeclidin-Vilanter [Trelegy Ellipta] 100-62.5-25 mcg INH SCH (09:19)
[2021-08-27] MEDS: MAGNESIUM SULF INJ 2 GM in SODIUM CHLORIDE 0.9% 1,000 ML IV SCH (15:18)
[2021-08-27] MEDS: MONTELUKAST 10 MG TABLET PO SCH (16:20)
[2021-08-27] MEDS: CITALOPRAM 20 MG TABLET PO SCH (20:21)
[2021-08-28] MEDS: traMADol 50 MG TABLET PO PRN ×2 (02:24→10:35)
[2021-08-28] MEDS: ALBUTEROL/IPRATROPIUM 3 ML NEB RESP TX SCH ×6 (02:45→23:58)
[2021-08-28 05:31] LABS: Eosinophils # 0.2 10*3/uL (0.0-0.87); Eosinophils % 2.9 % (0.00-10.9); Hematocrit 33.5 VOL% (35.7-47.0); Hemoglobin 10.6 GM/DL (12.0-16.0); Immature Granulocytes % 0.3 %; Immature Granulocytes Absolute 0.02 #; Lymphocytes % 15.6 % (21.3-54.2); Mean Corpuscular HGB Conc 31.6 GM/DL (32-36); Mean Corpuscular Volume 99.7 FL (87-102); Mean Platelet Volume 9.7 FL (9.6-12.0); Monocytes % 13.3 % (1.7-12.7); Neutrophils % 67.9 % (38.7-73.9); Platelet Count 183 T/CUMM (130-400); Red Blood Count 3.36 MC/CUMM (3.8-5.5); Red Cell Distribution Width 15.2 % (9.3-17.3); White Blood Count 6.5 T/CUMM (4-12)
[2021-08-28 06:07] LABS: Albumin 2.7 G/DL (3.4-5.0); Bilirubin,Total 0.4 MG/DL (0.20-1.00); Calcium 8.9 MG/DL (8.5-10.1); Osmolality,Calculated 282.3 MOS/KG (273-304); Potassium 3.9 MMOL/L (3.5-5.1); Total Protein 6.3 G/DL (6.4-8.2)
[2021-08-28] MEDS: DORNASE ALFA 2.5 MG/2.5 ML VIAL RESP TX SCH ×2 (07:08→19:20)
[2021-08-28] MEDS: PANTOPRAZOLE 40 MG TABLET PO SCH (09:54)
[2021-08-28] MEDS: CETIRIZINE 10 MG TABLET PO SCH (09:54)
[2021-08-28] MEDS: POTASSIUM CHLORIDE 20 MEQ TABLET PO SCH (09:54)
[2021-08-28] MEDS: ATORVASTATIN 40 MG TABLET PO SCH (09:54)
[2021-08-28] MEDS: TOLTERODINE LA 2 MG CAPSULE PO SCH (09:54)
[2021-08-28] MEDS: FUROSEMIDE 40 MG TABLET PO SCH (09:54)
[2021-08-28] MEDS: DOCUSATE SODIUM 100 MG CAPSULE PO SCH ×2 (09:54→20:07)
[2021-08-28] MEDS: ROFLUMILAST 500 MCG TABLET PO SCH (09:55)
[2021-08-28] MEDS: carvediloL 6.25 MG TABLET PO SCH ×2 (09:55→16:57)
[2021-08-28] MEDS: HYOSCYAMINE 0.125 MG TABLET SL SCH ×2 (09:55→16:57)
[2021-08-28] MEDS: MULTIVITAMIN (CENTRUM) TABLET PO SCH (09:55)
[2021-08-28] MEDS: POLYVINYL ALCOHOL 1.4% OPH SOLN 15 ML BOTTLE BOTH EYES SCH ×3 (09:55→20:08)
[2021-08-28] MEDS: THEOPHYLLINE ER 300 MG TABLET PO SCH ×2 (09:55→16:57)
[2021-08-28] MEDS: NON-FORMULARY MEDICATION (Fluticasone-Umeclidin-Vilanter [Trelegy Ellipta] 100-62.5-25 mcg INH SCH (09:55)
[2021-08-28] MEDS: MAGNESIUM SULF INJ 2 GM in SODIUM CHLORIDE 0.9% 1,000 ML IV SCH (11:38)
[2021-08-28] MEDS: MONTELUKAST 10 MG TABLET PO SCH (16:57)
[2021-08-28] MEDS: CITALOPRAM 20 MG TABLET PO SCH (20:07)
[2021-08-29] MEDS: ALBUTEROL/IPRATROPIUM 3 ML NEB RESP TX SCH ×2 (03:25→07:30)
[2021-08-29] MEDS: MAGNESIUM SULF INJ 2 GM in SODIUM CHLORIDE 0.9% 1,000 ML IV SCH (06:36)
[2021-08-29] MEDS: DORNASE ALFA 2.5 MG/2.5 ML VIAL RESP TX SCH (07:35)
[2021-08-29] MEDS: ATORVASTATIN 40 MG TABLET PO SCH (09:35)
[2021-08-29] MEDS: POTASSIUM CHLORIDE 20 MEQ TABLET PO SCH (09:35)
[2021-08-29] MEDS: THEOPHYLLINE ER 300 MG TABLET PO SCH (09:35)
[2021-08-29] MEDS: ROFLUMILAST 500 MCG TABLET PO SCH (09:35)
[2021-08-29] MEDS: DOCUSATE SODIUM 100 MG CAPSULE PO SCH (09:35)
[2021-08-29] MEDS: MULTIVITAMIN (CENTRUM) TABLET PO SCH (09:35)
[2021-08-29] MEDS: carvediloL 6.25 MG TABLET PO SCH (09:35)
[2021-08-29] MEDS: PANTOPRAZOLE 40 MG TABLET PO SCH (09:35)
[2021-08-29] MEDS: TOLTERODINE LA 2 MG CAPSULE PO SCH (09:35)
[2021-08-29] MEDS: CETIRIZINE 10 MG TABLET PO SCH (09:35)
[2021-08-29] MEDS: HYOSCYAMINE 0.125 MG TABLET SL SCH (09:35)
[2021-08-29] MEDS: FUROSEMIDE 40 MG TABLET PO SCH (09:35)
[2021-08-29] MEDS: POLYVINYL ALCOHOL 1.4% OPH SOLN 15 ML BOTTLE BOTH EYES SCH (09:36)
[2021-08-29] MEDS: NON-FORMULARY MEDICATION (Fluticasone-Umeclidin-Vilanter [Trelegy Ellipta] 100-62.5-25 mcg INH SCH (09:37)
[2021-08-29 11:48] VITALS: BP 138/73
== END 2021-08-29 13:17 | disposition home health service (06) | DRG 181 ==
LOC: EDUNIT# → N.ED 14:46 → N.EDINP 14:46 → N.TELEN 20:16
PROVIDERS: ADMIT Family Medicine; ATTEND Family Medicine

== ENCOUNTER 2022-07-06 13:16 | Inpatient (IN) ==
[2022-07-06 14:19] LABS: Basophils % 0.2 % (0.0-0.8); Eosinophils # 0.1 10*3/uL (0.0-0.87); Eosinophils % 1.5 % (0.00-10.9); Hematocrit 31.6 VOL% (35.7-47.0); Immature Granulocytes % 0.8 %; Immature Granulocytes Absolute 0.04 #; Lymphocytes # 0.7 10*3/uL (1.4-4.0); Lymphocytes % 15.4 % (21.3-54.2); Mean Corpuscular HGB Conc 31.6 GM/DL (32-36); Mean Corpuscular Volume 102.3 FL (87-102); Mean Platelet Volume 10.4 FL (9.6-12.0); Monocytes # 0.8 10*3/uL (0.11-0.8); Monocytes % 15.6 % (1.7-12.7); NRBC # 0.05 10*3/uL; Neutrophils % 66.5 % (38.7-73.9); Platelet Count 167 T/CUMM (130-400); Red Blood Count 3.09 MC/CUMM (3.8-5.5); Red Cell Distribution Width 15.5 % (9.3-17.3); White Blood Count 4.8 T/CUMM (4-12)
[2022-07-06 14:34] LABS: Albumin 3.1 G/DL (3.4-5.0); Bilirubin,Total 0.4 MG/DL (0.20-1.00); Osmolality,Calculated 289.7 MOS/KG (273-304); Potassium 3.8 MMOL/L (3.5-5.1)
[2022-07-06 14:40] LABS: PT Patient Result 11.2 SECS (10.1-12.1); Partial Thromboplastin Time 20.8 SECS (23.7-32.9)
[2022-07-06 14:52] LABS: Eosinophils 2 % (0-10); Lymphocytes 17 % (20-55); Nucleated Red Blood Cells 2 /100 WBC (0-5); Total Cells Counted 100
[2022-07-06 14:53] LABS: Anisocytosis Slight; Macrocytosis Slight; Microcytosis Slight; Platelet Estimate Adequate
[2022-07-06] MEDS ORDERED: ZALEPLON 5 MG CAPSULE PO PRN (16:14)
[2022-07-06] MEDS ORDERED: ACETAMINOPHEN 325 MG TABLET PO PRN (16:14)
[2022-07-06] MEDS ORDERED: NICOTINE 21 MG/24 HR PATCH TRANSDERM PRN (16:14)
[2022-07-06] MEDS ORDERED: diphenhydrAMINE CAP 25 MG CAPSULE PO PRN (16:14)
[2022-07-06] MEDS ORDERED: hydrALAZINE 20 MG/1 ML VIAL IV PRN (16:14)
[2022-07-06] MEDS: SODIUM CHLORIDE 0.9% 1,000 ML IV SCH (18:35)
[2022-07-06] MEDS: ALBUTEROL/IPRATROPIUM 3 ML NEB RESP TX SCH (19:30)
[2022-07-07] MEDS: ALBUTEROL/IPRATROPIUM 3 ML NEB RESP TX SCH ×4 (00:35→19:15)
[2022-07-07 06:25] LABS: Basophils % 0.2 % (0.0-0.8); Eosinophils # 0.1 10*3/uL (0.0-0.87); Eosinophils % 1.2 % (0.00-10.9); Hematocrit 30.3 VOL% (35.7-47.0); Hemoglobin 9.7 GM/DL (12.0-16.0); Immature Granulocytes % 0.6 %; Immature Granulocytes Absolute 0.03 #; Lymphocytes # 0.9 10*3/uL (1.4-4.0); Lymphocytes % 19.3 % (21.3-54.2); Mean Corpuscular Volume 102.7 FL (87-102); Mean Platelet Volume 9.5 FL (9.6-12.0); Monocytes # 0.7 10*3/uL (0.11-0.8); Monocytes % 13.4 % (1.7-12.7); Neutrophils % 65.3 % (38.7-73.9); Platelet Count 166 T/CUMM (130-400); Red Blood Count 2.95 MC/CUMM (3.8-5.5); Red Cell Distribution Width 15.5 % (9.3-17.3); White Blood Count 4.9 T/CUMM (4-12)
[2022-07-07 06:42] LABS: Calcium 8.5 MG/DL (8.5-10.1); Osmolality,Calculated 288.7 MOS/KG (273-304); Potassium 3.6 MMOL/L (3.5-5.1)
[2022-07-07] MEDS: MULTIVITAMIN (CENTRUM) TABLET PO SCH (09:19)
[2022-07-07] MEDS: ASPIRIN 325 MG TABLET PO SCH (09:19)
[2022-07-07] MEDS: HYOSCYAMINE 0.125 MG TABLET PO SCH ×4 (09:19→20:54)
[2022-07-07] MEDS: FUROSEMIDE 40 MG TABLET PO SCH (09:20)
[2022-07-07] MEDS: predniSONE 10 MG TABLET PO SCH (09:20)
[2022-07-07] MEDS: ATORVASTATIN 40 MG TABLET PO SCH (10:21)
[2022-07-07] MEDS: CETIRIZINE 10 MG TABLET PO SCH (10:21)
[2022-07-07] MEDS: THEOPHYLLINE ER 300 MG TABLET PO SCH ×2 (10:21→18:02)
[2022-07-07] MEDS: carvediloL 6.25 MG TABLET PO SCH ×2 (10:21→18:01)
[2022-07-07] MEDS: METOCLOPRAMIDE 5 MG TABLET PO SCH ×4 (10:21→18:02)
[2022-07-07] MEDS: SODIUM CHLORIDE 0.9% 1,000 ML IV SCH (10:23)
[2022-07-07 11:48] LABS: Bilirubin,Urine Negative (Negative); Blood, Urine Negative (Negative); Glucose,Urine (UA) Negative (Negative); Ketones,Urine Negative (Negative); Nitrite,Urine Negative (Negative); Protein,Urine Negative (Negative); Urine Appearance Clear (Clear); Urine Color Yellow (Yellow); Urine Specific Gravity 1.015 (1.001-1.035); Urine Urobilinogen 0.2 eU/dL (<2.0)
[2022-07-07 11:49] LABS: Mucus,Urine Occasional /LPF (Occasional); RBC,Urine 1 /HPF (0-4); Squamous Epithelial Cell,Urine Occasional /HPF (0-10)
[2022-07-07 12:00] LABS: Barbiturates Screen,Urine Negative (Negative); Benzodiazepines Screen,Urine Negative (Negative); Cannabinoid Screen,Urine Negative (Negative); Opiate Screen,Urine Positive (Negative); Phencyclidine Screen,Urine Negative (Negative)
[2022-07-07] MEDS: MONTELUKAST 10 MG TABLET PO SCH (18:02)
[2022-07-08] MEDS: ALBUTEROL/IPRATROPIUM 3 ML NEB RESP TX SCH ×4 (00:10→20:00)
[2022-07-08 06:50] LABS: Basophils % 0.2 % (0.0-0.8); Eosinophils # 0.1 10*3/uL (0.0-0.87); Eosinophils % 1.8 % (0.00-10.9); Hematocrit 30.4 VOL% (35.7-47.0); Hemoglobin 9.7 GM/DL (12.0-16.0); Immature Granulocytes % 0.9 %; Immature Granulocytes Absolute 0.04 #; Lymphocytes % 21.8 % (21.3-54.2); Mean Corpuscular HGB Conc 31.9 GM/DL (32-36); Mean Corpuscular Volume 100.7 FL (87-102); Mean Platelet Volume 10.2 FL (9.6-12.0); Monocytes # 0.7 10*3/uL (0.11-0.8); Monocytes % 14.7 % (1.7-12.7); NRBC # 0.02 10*3/uL; Neutrophils % 60.6 % (38.7-73.9); Platelet Count 171 T/CUMM (130-400); Red Blood Count 3.02 MC/CUMM (3.8-5.5); Red Cell Distribution Width 15.1 % (9.3-17.3); White Blood Count 4.5 T/CUMM (4-12)
[2022-07-08 07:18] LABS: Calcium 8.4 MG/DL (8.5-10.1); Osmolality,Calculated 289.7 MOS/KG (273-304); Potassium 3.6 MMOL/L (3.5-5.1); Risk Ratio 1.68; VLDL Cholesterol 11.8 MG/DL
[2022-07-08] MEDS: ASPIRIN 325 MG TABLET PO SCH (08:17)
[2022-07-08] MEDS: predniSONE 10 MG TABLET PO SCH (08:17)
[2022-07-08] MEDS: CETIRIZINE 10 MG TABLET PO SCH (08:17)
[2022-07-08] MEDS: HYOSCYAMINE 0.125 MG TABLET PO SCH ×4 (08:17→20:00)
[2022-07-08] MEDS: carvediloL 6.25 MG TABLET PO SCH ×2 (08:17→17:21)
[2022-07-08] MEDS: ATORVASTATIN 40 MG TABLET PO SCH (08:17)
[2022-07-08] MEDS: MULTIVITAMIN (CENTRUM) TABLET PO SCH (08:17)
[2022-07-08] MEDS: THEOPHYLLINE ER 300 MG TABLET PO SCH ×2 (08:17→17:21)
[2022-07-08] MEDS: FUROSEMIDE 40 MG TABLET PO SCH (08:17)
[2022-07-08] MEDS: METOCLOPRAMIDE 5 MG TABLET PO SCH ×3 (08:17→17:21)
[2022-07-08] MEDS: SODIUM CHLORIDE 0.9% 1,000 ML IV SCH (08:17)
[2022-07-08] MEDS: Fluticasone-Umeclidin-Vilanter [Trelegy Ellipta] 100-62.5-25 mcg INH SCH (10:41)
[2022-07-08] MEDS: MONTELUKAST 10 MG TABLET PO SCH (17:21)
[2022-07-09] MEDS: ALBUTEROL/IPRATROPIUM 3 ML NEB RESP TX SCH ×4 (02:20→20:01)
[2022-07-09] MEDS: ASPIRIN 325 MG TABLET PO SCH (09:08)
[2022-07-09] MEDS: HYOSCYAMINE 0.125 MG TABLET PO SCH ×2 (09:08→14:48)
[2022-07-09] MEDS: guaiFENesin/DM ER 600-30 MG TABLET PO PRN ×2 (09:09→09:10)
[2022-07-09] MEDS: carvediloL 6.25 MG TABLET PO SCH ×2 (09:09→18:18)
[2022-07-09] MEDS: METOCLOPRAMIDE 5 MG TABLET PO SCH ×2 (09:10→13:15)
[2022-07-09] MEDS: predniSONE 10 MG TABLET PO SCH (09:11)
[2022-07-09] MEDS: ATORVASTATIN 40 MG TABLET PO SCH (09:11)
[2022-07-09] MEDS: THEOPHYLLINE ER 300 MG TABLET PO SCH ×2 (09:11→18:17)
[2022-07-09] MEDS: CETIRIZINE 10 MG TABLET PO SCH (09:12)
[2022-07-09] MEDS: MULTIVITAMIN (CENTRUM) TABLET PO SCH (09:12)
[2022-07-09] MEDS: Fluticasone-Umeclidin-Vilanter [Trelegy Ellipta] 100-62.5-25 mcg INH SCH (09:20)
[2022-07-09] MEDS ORDERED: FLUCONAZOLE 200 MG TABLET PO ONE (14:17)
[2022-07-09] MEDS: ACETAMINOPHEN 325 MG TABLET PO SCH ×2 (18:09→20:42)
[2022-07-09] MEDS: MONTELUKAST 10 MG TABLET PO SCH (18:16)
[2022-07-10] MEDS: ALBUTEROL/IPRATROPIUM 3 ML NEB RESP TX SCH ×4 (00:15→19:02)
[2022-07-10 05:55] LABS: Basophils % 0.3 % (0.0-0.8); Eosinophils # 0.1 10*3/uL (0.0-0.87); Eosinophils % 1.2 % (0.00-10.9); Hematocrit 30.9 VOL% (35.7-47.0); Immature Granulocytes % 0.9 %; Immature Granulocytes Absolute 0.05 #; Lymphocytes # 1.1 10*3/uL (1.4-4.0); Lymphocytes % 19.9 % (21.3-54.2); Mean Corpuscular HGB Conc 32.4 GM/DL (32-36); Mean Corpuscular Volume 102.3 FL (87-102); Mean Platelet Volume 10.2 FL (9.6-12.0); Monocytes # 0.8 10*3/uL (0.11-0.8); Monocytes % 13.1 % (1.7-12.7); NRBC # 0.05 10*3/uL; Neutrophils % 64.6 % (38.7-73.9); Platelet Count 184 T/CUMM (130-400); Red Blood Count 3.02 MC/CUMM (3.8-5.5); White Blood Count 5.7 T/CUMM (4-12)
[2022-07-10 06:30] LABS: Calcium 9.3 MG/DL (8.5-10.1); Osmolality,Calculated 292.6 MOS/KG (273-304); Potassium 3.9 MMOL/L (3.5-5.1)
[2022-07-10] MEDS: carvediloL 6.25 MG TABLET PO SCH ×2 (10:11→16:50)
[2022-07-10] MEDS: FLUCONAZOLE 100 MG TABLET PO SCH (10:12)
[2022-07-10] MEDS: THEOPHYLLINE ER 300 MG TABLET PO SCH ×2 (10:12→16:50)
[2022-07-10] MEDS: ASPIRIN 325 MG TABLET PO SCH (10:12)
[2022-07-10] MEDS: ATORVASTATIN 40 MG TABLET PO SCH (10:12)
[2022-07-10] MEDS: MULTIVITAMIN (CENTRUM) TABLET PO SCH (10:12)
[2022-07-10] MEDS: CETIRIZINE 10 MG TABLET PO SCH (10:13)
[2022-07-10] MEDS: ACETAMINOPHEN 325 MG TABLET PO SCH ×3 (10:13→20:49)
[2022-07-10] MEDS: predniSONE 10 MG TABLET PO SCH (10:13)
[2022-07-10] MEDS: Fluticasone-Umeclidin-Vilanter [Trelegy Ellipta] 100-62.5-25 mcg INH SCH (16:51)
[2022-07-10] MEDS: MONTELUKAST 10 MG TABLET PO SCH (16:51)
[2022-07-11] MEDS: ALBUTEROL/IPRATROPIUM 3 ML NEB RESP TX SCH ×4 (00:03→19:19)
[2022-07-11 05:46] LABS: Calcium 8.9 MG/DL (8.5-10.1); Osmolality,Calculated 292.4 MOS/KG (273-304); Potassium 4.5 MMOL/L (3.5-5.1)
[2022-07-11] MEDS ORDERED: KETOROLAC 15 MG/1 ML VIAL IV ONE (06:30)
[2022-07-11] MEDS: ACETAMINOPHEN 325 MG TABLET PO SCH ×3 (09:00→20:21)
[2022-07-11] MEDS ORDERED: POLYVINYL 0.5%/POVIDONE 0.6% OPH SOLN 15 ML BOTTLE BOTH EYES PRN (10:28)
[2022-07-11] MEDS: Fluticasone-Umeclidin-Vilanter [Trelegy Ellipta] 100-62.5-25 mcg INH SCH (13:05)
[2022-07-11] MEDS: carvediloL 6.25 MG TABLET PO SCH ×2 (13:38→18:30)
[2022-07-11] MEDS: FLUCONAZOLE 100 MG TABLET PO SCH (13:38)
[2022-07-11] MEDS: predniSONE 10 MG TABLET PO SCH (13:38)
[2022-07-11] MEDS: ATORVASTATIN 40 MG TABLET PO SCH (13:38)
[2022-07-11] MEDS: ASPIRIN 325 MG TABLET PO SCH (13:38)
[2022-07-11] MEDS: MULTIVITAMIN (CENTRUM) TABLET PO SCH (13:38)
[2022-07-11] MEDS: CETIRIZINE 10 MG TABLET PO SCH (13:38)
[2022-07-11] MEDS: THEOPHYLLINE ER 300 MG TABLET PO SCH ×2 (13:39→16:55)
[2022-07-11] MEDS ORDERED: MORPHINE 2 MG/1 ML SYRINGE IV ONE (14:30)
[2022-07-11] MEDS: DEXTROSE 5% 1,000 ML IV SCH (14:50)
[2022-07-11] MEDS: MONTELUKAST 10 MG TABLET PO SCH (16:55)
[2022-07-12] MEDS: ALBUTEROL/IPRATROPIUM 3 ML NEB RESP TX SCH ×4 (00:18→19:25)
[2022-07-12] MEDS: DEXTROSE 5% 1,000 ML IV SCH ×2 (02:48→19:18)
[2022-07-12 04:49] LABS: Basophils % 0.1 % (0.0-0.8); Eosinophils % 0.4 % (0.00-10.9); Hematocrit 29.8 VOL% (35.7-47.0); Hemoglobin 9.5 GM/DL (12.0-16.0); Immature Granulocytes % 0.4 %; Immature Granulocytes Absolute 0.03 #; Lymphocytes # 0.4 10*3/uL (1.4-4.0); Lymphocytes % 4.8 % (21.3-54.2); Mean Corpuscular HGB Conc 31.9 GM/DL (32-36); Mean Corpuscular Volume 102.4 FL (87-102); Mean Platelet Volume 9.4 FL (9.6-12.0); Monocytes # 1.1 10*3/uL (0.11-0.8); NRBC # 0.04 10*3/uL; Neutrophils % 80.3 % (38.7-73.9); Platelet Count 149 T/CUMM (130-400); Red Blood Count 2.91 MC/CUMM (3.8-5.5); Red Cell Distribution Width 15.2 % (9.3-17.3); White Blood Count 8.1 T/CUMM (4-12)
[2022-07-12 05:10] LABS: Band Neutrophils 2 % (0-10); Lymphocytes 6 % (20-55); Nucleated Red Blood Cells 1 /100 WBC (0-5); Total Cells Counted 100
[2022-07-12 05:12] LABS: Macrocytosis Slight; Platelet Estimate Adequate; Polychromasia Slight
[2022-07-12 05:13] LABS: Calcium 8.5 MG/DL (8.5-10.1); Osmolality,Calculated 286.4 MOS/KG (273-304)
[2022-07-12 05:19] LABS: Albumin 2.9 G/DL (3.4-5.0); Bilirubin,Total 0.4 MG/DL (0.20-1.00); Calcium 8.8 MG/DL (8.5-10.1); Osmolality,Calculated 287.3 MOS/KG (273-304); Potassium 4.2 MMOL/L (3.5-5.1); Total Protein 5.6 G/DL (6.4-8.2)
[2022-07-12] MEDS: THEOPHYLLINE ER 300 MG TABLET PO SCH ×2 (08:00→17:01)
[2022-07-12] MEDS: carvediloL 6.25 MG TABLET PO SCH ×3 (08:00→16:37)
[2022-07-12] MEDS: ACETAMINOPHEN 325 MG TABLET PO SCH ×3 (09:00→21:19)
[2022-07-12] MEDS: LACTATED RINGERS 1,000 ML IV SCH (11:30)
[2022-07-12] MEDS ORDERED: propofoL 200 MG/20 ML VIAL IV ONE (12:18)
[2022-07-12] MEDS ORDERED: LIDOCAINE 2% 5 ML VIAL ONE (12:18)
[2022-07-12] MEDS: predniSONE 10 MG TABLET PO SCH (14:19)
[2022-07-12] MEDS: ASPIRIN 325 MG TABLET PO SCH (14:20)
[2022-07-12] MEDS: CETIRIZINE 10 MG TABLET PO SCH (14:20)
[2022-07-12] MEDS: ATORVASTATIN 40 MG TABLET PO SCH (14:20)
[2022-07-12] MEDS: MULTIVITAMIN (CENTRUM) TABLET PO SCH (14:20)
[2022-07-12] MEDS: FLUCONAZOLE 100 MG TABLET PO SCH (14:20)
[2022-07-12] MEDS: Fluticasone-Umeclidin-Vilanter [Trelegy Ellipta] 100-62.5-25 mcg INH SCH (14:21)
[2022-07-12] MEDS: MONTELUKAST 10 MG TABLET PO SCH (17:01)
[2022-07-12] MEDS ORDERED: carvediloL 6.25 MG TABLET PO ONE (21:00)
[2022-07-13] MEDS: ALBUTEROL/IPRATROPIUM 3 ML NEB RESP TX SCH ×3 (00:55→14:15)
[2022-07-13] MEDS: DEXTROSE 5% 1,000 ML IV SCH ×2 (03:52→10:54)
[2022-07-13 05:18] LABS: Basophils % 0.4 % (0.0-0.8); Eosinophils # 0.1 10*3/uL (0.0-0.87); Hemoglobin 9.2 GM/DL (12.0-16.0); Immature Granulocytes % 0.6 %; Immature Granulocytes Absolute 0.03 #; Lymphocytes # 0.6 10*3/uL (1.4-4.0); Lymphocytes % 11.6 % (21.3-54.2); Mean Corpuscular HGB Conc 31.7 GM/DL (32-36); Mean Corpuscular Volume 100.7 FL (87-102); Mean Platelet Volume 9.6 FL (9.6-12.0); Monocytes # 1.1 10*3/uL (0.11-0.8); Monocytes % 22.9 % (1.7-12.7); NRBC # 0.03 10*3/uL; Neutrophils % 63.5 % (38.7-73.9); Platelet Count 156 T/CUMM (130-400); Red Blood Count 2.88 MC/CUMM (3.8-5.5); Red Cell Distribution Width 15.3 % (9.3-17.3); White Blood Count 4.9 T/CUMM (4-12)
[2022-07-13 05:44] LABS: Alanine Aminotransferase 17 U/L (13-56); Albumin 2.8 G/DL (3.4-5.0); Alkaline Phosphatase 63 U/L (45-117); Aspartate Amino Transferase 17 U/L (0-37); Bilirubin,Total < 0.39 MG/DL (0.20-1.00); Blood Urea Nitrogen 18 MG/DL (7-18); Calcium 8.5 MG/DL (8.5-10.1); Carbon Dioxide 29 MMOL/L (21-32); Chloride 109 MMOL/L (98-107); Glucose 197 MG/DL (74-106); Osmolality,Calculated 287.3 MOS/KG (273-304); Sodium 141 MMOL/L (136-145); Total Protein 5.6 G/DL (6.4-8.2)
[2022-07-13 05:47] LABS: Eosinophils 3 % (0-10); Lymphocytes 12 % (20-55); Nucleated Red Blood Cells 1 /100 WBC (0-5); Platelet Estimate Adequate; Total Cells Counted 100
[2022-07-13] MEDS: predniSONE 10 MG TABLET PO SCH (09:18)
[2022-07-13] MEDS: THEOPHYLLINE ER 300 MG TABLET PO SCH (09:18)
[2022-07-13] MEDS: MULTIVITAMIN (CENTRUM) TABLET PO SCH (09:18)
[2022-07-13] MEDS: ASPIRIN 325 MG TABLET PO SCH (09:18)
[2022-07-13] MEDS: ATORVASTATIN 40 MG TABLET PO SCH (09:18)
[2022-07-13] MEDS: ACETAMINOPHEN 325 MG TABLET PO SCH (09:18)
[2022-07-13] MEDS: carvediloL 6.25 MG TABLET PO SCH (09:18)
[2022-07-13] MEDS: CETIRIZINE 10 MG TABLET PO SCH (09:18)
[2022-07-13] MEDS: FLUCONAZOLE 100 MG TABLET PO SCH (09:19)
[2022-07-13] MEDS: LACTATED RINGERS 1,000 ML IV SCH (09:26)
[2022-07-13] MEDS ORDERED: LOPERAMIDE 2 MG CAPSULE PO SCH (09:30)
[2022-07-13] MEDS: Fluticasone-Umeclidin-Vilanter [Trelegy Ellipta] 100-62.5-25 mcg INH SCH (10:53)
[2022-07-13 11:03] VITALS: BP 174/84
== END 2022-07-13 14:12 | disposition home or self-care (01) | DRG 69 ==
LOC: N.ED 13:16 → N.EDINP 13:16 → SUATTDRO 16:14 → N.3E 16:35
PROVIDERS: ADMIT Internal Medicine; ATTEND Family Medicine